=== PATIENT | male | born 1945 | race Caucasian/White ===

== ENCOUNTER → 2019-04-03 | Day surgery (SDC) | payer MEDICARE, SELFPAY | PROVIDERS: Family Provider Family Medicine; Visit Provider Family Medicine | DX: C64.1 Malignant neoplasm of right kidney, except renal pelvis (principal); S32.009A Unspecified fracture of unspecified lumbar vertebra, initial encounter for closed fracture; X58.XXXA Exposure to other specified factors, initial encounter; R91.8 Other nonspecific abnormal finding of lung field; Z82.49 Family history of ischemic heart disease and other diseases of the circulatory system | CPT/HCPCS: 50200; 77012; 88305; 88341; 88342; 96374; 96375; J2001; J2250; J3010 ==

== ENCOUNTER 2019-08-22 07:10 | Outpatient (RCR) | payer MEDICARE, SELFPAY | END 2019-08-22 23:59 | disposition home or self-care (01) | LOC: ONCRAD 07:10 | PROVIDERS: Family Provider Family Medicine; Visit Provider Nurse Practitioner | DX: Z51.12 Encounter for antineoplastic immunotherapy (principal); C64.1 Malignant neoplasm of right kidney, except renal pelvis; C79.51 Secondary malignant neoplasm of bone; C78.01 Secondary malignant neoplasm of right lung; C78.02 Secondary malignant neoplasm of left lung; D70.1 Agranulocytosis secondary to cancer chemotherapy; T45.1X5A Adverse effect of antineoplastic and immunosuppressive drugs, initial encounter; M19.90 Unspecified osteoarthritis, unspecified site; M48.9 Spondylopathy, unspecified; Z86.69 Personal history of other diseases of the nervous system and sense organs; Z85.820 Personal history of malignant melanoma of skin; Z92.3 Personal history of irradiation; Z79.899 Other long term (current) drug therapy | CPT/HCPCS: 36415; 80053 ×2; 83615; 84443 ×2; 85025 ×2; 96366; 96413; 99214; J1450; J7050 ×2; J9271 ==

== ENCOUNTER → 2019-08-29 00:01 | Outpatient (RCR) | payer MEDICARE, SELFPAY | LOC: ONCRAD 08-24 06:00 | PROVIDERS: Family Provider Family Medicine; Visit Provider Nurse Practitioner | DX: E86.9 Volume depletion, unspecified (principal); R11.0 Nausea; C64.1 Malignant neoplasm of right kidney, except renal pelvis; C79.51 Secondary malignant neoplasm of bone | CPT/HCPCS: 80053 ×2; 84443; 85025 ×2; 96361 ×2; 96365 ×2; 96367 ×2; J1100 ×2; J3490 ×2 ==

== ENCOUNTER 2019-09-04 05:28 | Outpatient (RCR) | payer MEDICARE, SELFPAY ==
[2019-08-31] MEDS: sodium chloride 0.9% 1,000 ML 999 ML IV (15:30)
[2019-09-01] MEDS: sodium chloride 0.9% 1,000 ML 999 ML IV (08:35)
[2019-09-04 12:14] LABS: Basophils % 1.2 %; Hematocrit 32.4 % (42.0-52.0); Hemoglobin 10.6 g/dL (11.7-16.6); Lymphocytes # 0.3 10^3/uL (0.8-4.8); Lymphocytes % 9.6 %; Mean Corpuscular HGB Conc 32.7 g/dL (30.0-36.0); Mean Corpuscular Hemoglobin 28.3 pg (28.0-34.0); Mean Corpuscular Volume 86.6 fL (80-94); Mean Platelet Volume 8.8 fL (7.4-10.4); Monocytes # 0.9 10^3/uL (0.2-0.9); Monocytes % 35.8 %; Neutrophils # 1.4 10^3/uL (1.8-7.7); Neutrophils % 52.2 %; Nucleated Red Blood Cells % 0 %; Platelet Count 212 10^3/cmm (130-400); Red Blood Count 3.74 10^6/uL (4.1-5.3); Red Cell Distribution Width 15.3 % (12.1-15.1); White Blood Count 2.6 10^3/uL (4.0-10.0)
[2019-09-04] MEDS: sodium chloride 0.9% 1,000 ML 999 ML IV (12:20)
[2019-09-04 12:35] LABS: Alanine Aminotransferase 22 U/L (0-41); Albumin Level 3.2 g/dL (3.5-5.2); Alkaline Phosphatase 91 IU/L (40-130); Anion Gap 23.8 (5-19); Aspartate Amino Transferase 20 U/L (0-40); Blood Urea Nitrogen 13 mg/dL (8-23); Calcium 8.3 mg/Dl (8.8-10.2); Carbon Dioxide 18 mmol/L (22-29); Chloride 91 mmol/L (98-107); Globulin 3.2 g/dL (1.3-4.6); Glucose 94 mg/dL (74-106); Lactate Dehydrogenase 286 U/L (135-225); Phenytoin Dilantin 3.2 ug/mL (10-20); Potassium 3.8 mmol/L (3.5-5.1); Sodium 129 mmol/L (136-145); Total Bilirubin 0.4 mg/dL (0.15-1.2); Total Protein 6.4 g/dL (6.6-8.7)
--- NOTE | 2019-09-04 12:57 | ONC FU_ITS ---
Dr. Valentine Patient Follow-Up Note Patient: Joshua Warren Unit #: [id number]: [id number] Dicatated By: Inderjit Valentine M.D.Date of Visit:Sep 04, 2019 Onc Med Follow-up/Prog Note Chief Complaint: Renal cell cancer. History of Present Illness: This is a 73 year-old man with clear-cell carcinoma the right kidney, stage IV (T2b, NX, M1). He had presented with back pain, which he says had started for 5 months ago. An x-ray of the thoracic spine on 12/14/2018 showed anterior wedging in the upper thoracic spine which appeared chronic. There was also chronic thoracic ankylosis with partial disc space fusion. X-ray of the lumbar spine on 02/15/2019 showed 30% anterior wedge compression fracture at L3 which was felt to be suspicious for pathologic fracture. Also noted were multiple pulmonary nodules suspicious for metastatic disease. Further evaluation with MRI of the lumbar spine on 02/28/2019 showed suspected pathologic compression fracture at L3 with epidural extension of disease and mild central canal stenosis. There was a paravertebral soft tissue component to the L3 pathologic compression with edema. There was a partially included lobulated mass involving the right kidney lower pole measuring 7-8 cm, suspicious for renal cell carcinoma. Additional metastatic lesions involving the T9 and T10 vertebral bodies were noted on the water pollution specialist imaging, there were additional bony metastatic lesions at the S3 vertebral body. Chest CT at that time showed innumerable metastatic pulmonary nodules throughout both lungs and masslike right hilar and infrahilar lymphadenopathy. A heterogeneous enhancing lesion involving the right adrenal gland measuring 1.8 cm was nonspecific but suspicious for metastatic disease. CT abdomen/pelvis on 03/17/2019 confirmed the presence of a large lobulated right renal mass with central necrosis measuring 10.3 x 8.9 x 8.6 cm, consistent with renal cell neoplasm. There was extension into the renal pelvis and there is perinephric soft tissue infiltration around the right kidney, possibly due to tumor extension. There was no evidence for tumor thrombus in the right renal vein or inferior vena cava. The right adrenal mass measured 2.0 cm and was suspicious for a metastatic lesion. He underwent CT directed needle biopsy of the right renal mass on 04/03/2019. Pathology showed malignant neoplasm most consistent with clear cell renal cell carcinoma. I had seen him initially on 04/12/2019. Due to the severity of his pain, I had initially opted to refer him for palliative radiation. He had further evaluation with MRI of the thoracic spine, which showed enhancing metastatic lesions at numerous other sites. He then underwent palliative radiation to the thoracic spine, completed on 04/26/2019 to a total dose of 3000 cGy, and to the lumbar spine, completed on 04/28/2019 to a total dose of 4000 cGy. During that time, he had developed fairly intractable nausea/vomiting. His medical history is otherwise significant for previous skin cancer excision from the left postauricular area. He indicates that it was melanoma, but I do not have confirmation of that. He had undergone excision of a basal cell skin cancer from the right antecubital in 2012. He has a history of seizure disorder, and he also has degenerative arthritis. He has had no other prior medical illnesses. He is a nonsmoker. INTERIM HISTORY: I had seen him for a follow-up visit on 05/02/2019. At that point his pain had improved significantly, but he was still having pretty severe nausea/vomiting. He had very poor oral intake and very poor performance status. He was given IV hydration and IV anti-emetics on multiple occasions. During that time he had further evaluation with brain MRI, which showed no evidence of metastatic disease. During subsequent follow-up, he had gradual improvement in his GI symptoms. On 05/16/2019 he began systemic therapy with pembrolizumab in combination with axitinib. He tolerated the initial infusion of pembrolizumab without acute toxicity, and he continued with cycle 2 on 06/06/2019. A repeat CT abdomen/pelvis on 06/07/2019 did show evidence of therapeutic response in the right renal neoplasm, and multiple pulmonary metastatic nodules, and in the right adrenal nodule compared to the prior study from 05/01/2019. Pathologic compression fracture at L3 appeared stable. There did appear to be progressive lytic metastatic disease involving the S2, S3, and S4 vertebral bodies, the left sacral ala, and probably the left ischium. With those findings, he was referred to Dr. Ho, and he underwent additional palliative radiation to the sacrum and left ischium/acetabulum. He completed treatment on 06/28/2019, total dose 3000 cGy to each site. He then continued treatment with pembrolizumab at 3-week intervals. As of 08/16/2019 he received his 5th cycle of treatment. He is seen for a follow-up visit. Since his last treatment, he had recurrence of nausea/vomiting, requiring IV hydration on several occasions. Initially it was just getting worse very gradually. However, on he developed more severe nausea/vomiting and diarrhea, and since then the vomiting has been intractable, and he has not been able to hold down any solid or liquid intake. He thinks he has felt feverish, but he has not actually documented any fever. He has had occasional night sweating. He is very weak, and his activity is very limited. ECOG score is 3. His weight has dropped 10 pounds. He says his breathing is not labored, but it also is not free. He has just occasional cough. He sometimes has had a little pressure in his chest. He has had no further bowel movements subsequent to the diarrhea episode on . He does report having gas pressure in his abdomen. Urination is slow, and he has having less urine output. He has no significant joint or bone pain. He has headache associated with the vomiting. He is sometimes lightheaded. He has no focal neurologic symptoms. Medications: Ibuprofen 2 Tablet (of 200 mg) Oral four times a day PRN, Levothyroxine Sodium 1 Tablet (of 100 mcg) Oral daily, LORazepam 0.5 - 1 Tablet (of 1 mg) Oral t.i.d. PRN, Ondansetron HCl 1 Tablet (of 8 mg) Oral q 8 hours PRN, Phenytoin Sodium Extended 2 Capsule (of 100 mg) Oral b.i.d., Potassium Chloride ER 1 Tablet (of 10 meq) Tablet, controlled release Oral daily PRN, Promethazine HCl 1 Tablet (of 25 mg) Oral q 8 hours PRN Allergies: No Known Allergies. Review of Systems: Constitutional - His energy is very low. He is mainly sedentary at home. His appetite is poor and his weight is down almost 10 pounds. He recently has felt feverish at times. He has occasional sweating at night. ECOG score is 3, ENMT - No sinus congestion/drainage. No mouth sores. No sore throat. He gags and gets choked on food, Hematologic/Lymphatic - No abnormal bruising or bleeding, Respiratory - He feels short of breath. No cough. No pleuritic pain or hemoptysis, Cardiovascular - He has chest pressure. No palpitations, Gastrointestinal - He has had nausea and vomiting for a week or so. It had been getting gradually worse, but since New Day he has not been able to hold down solid or liquid intake. No heartburn or acid reflux. He had diarrhea and abdominal cramping on New . He has not really had any bowel movements since then due to the decrease of oral intake. He has some bloating and cramping. No blood in the stool or black stools, Genitourinary (M) - No dysuria or hematuria. No urinary frequency. No urgency or incontinence. His urine is slow and his output is less, Musculoskeletal - No joint or bone pain, Integumentary - No skin complications, Neurologic - He has had headaches with the vomiting. He has some dizziness. No numbness/paresthesias or other focal neurologic symptoms, Psychiatric - No anxiety or depression. He is not sleeping well at night. Vital Signs: Performed on Sep 04, 2019 11:03 Height - 76.00 in Weight - 164.4 lbs (LOW) BSA - 2.04 sq.m BMI - 20.01 Temperature - 98.2 F (LOW) Pulse - 103 /min (HIGH) Respiration - 26 /min BP - 108/75 mm(hg) O2 Sat - 92 % (LOW) Pain - 2 Physical Examination: Constitutional - He appears very weak generally. He has noticeable weight loss, Eyes - Sclerae nonicteric. Conjunctivae clear, ENMT - No lesions noted in the oral cavity, Hematologic/Lymphatic - No cervical, clavicular, or axillary adenopathy, Respiratory - Lungs are clear with good air movement bilaterally, Cardiovascular - Heart rhythm is regular with a mild tachycardia. There is no murmur, gallop, or rub noted, Abdomen - Soft. Liver and spleen are not enlarged. There is no abdominal mass or ascites noted and there is no inguinal adenopathy, Extremities - There is mild lower extremity edema. Both feet feel cold, but he does have palpable dorsalis pedis pulses bilaterally, Neurologic - No focal neurologic deficits noted. Lab/Imaging: Test performed on Sep 04, 2019 12:37 Phenytoin (Dilantin) 3.2 mcg/mL Glucose 94 mg/dL LDH, Total 286 IU/L BUN 13 mg/dL Creatinine 1.3 mg/dL Cr Clearance (Est) 51.79 mL/min Sodium 129 mmol/L Potassium 3.8 mmol/L Chloride 91 mmol/L CO2 18 mmol/L Calcium 8.3 mg/dL Protein, Total 6.4 g/dL Albumin 3.2 g/dL Globulin 3.2 g/dL Bilirubin, Total 0.4 mg/dL Alkaline Phosphatase 91 IU/L AST (SGOT) 20 IU/L ALT (SGPT) 22 IU/L Test performed on Sep 04, 2019 12:32 WBC 2.6 10^9/L RBC 3.74 10^12/L HGB 10.6 g/dL HCT 32.4 % MCV 86.6 fl MCH 28.3 pg MCHC 32.7 g/dL RDW 15.3 % Platelet Count 212 10^9/L Neutrophils (Gran) 1.4 10^9/L Lymphocytes 0.3 10^9/L Monocytes 0.9 10^9/L Eosinophils 0 10^9/L Basophils 0 10^9/L Impression: 1. Patient with clear-cell carcinoma of the right kidney, stage IV (T2b, NX, M1). 2. He had MRI evidence of metastatic bone involvement with pathologic compression fracture of the L3 vertebral body and metastatic involvement at multiple sites in the thoracic spine. 3. He had poor performance status. His other medical illnesses include: 4. Degenerative arthritis/degenerative disease of the spine. 5. History of seizure disorder. 6. History of melanoma excision from the left postauricular area and excision of basal cell carcinoma from the right antecubital space. He had severe pain associated with the metastatic bone involvement, and initially he was referred for palliative radiation. He completed treatment to the thoracic spine on 04/26/2019, total dose 3000 cGy, and to the lumbar spine on 04/28/2019, total dose 4000 cGy. During the radiation he developed fairly intractable nausea/vomiting, and he continued to have very marginal performance status. He did appear, though, to have a very good clinical response the radiation. During subsequent follow-up he had gradual improvement in his GI symptoms. On 05/16/2019 he began treatment with pembrolizumab in combination with axitinib. Initally he had been tolerating the treatment well, though he continued to have limited activity. His performance status, though, was gradually improving. Repeat CT abdomen/pelvis on 06/07/2019 showed evidence of therapeutic response of the right renal neoplasm, multiple pulmonary metastatic nodules, and right adrenal nodule. There was, however, progressive lytic metastatic disease involving the sacrum and pelvis. He was then given additional palliative radiation to the pelvis, completed on 06/28/2019 to a total dose of 3000 cGy. He proceeded with cycle 3 of pembrolizumab on 07/05/2019, and he then continued treatment at 3-week intervals. He received cycle 5 on 08/16/2019. At that point the axitinib was put on hold due to persistent neutropenia. He has since then developed recurrence of nausea/vomiting. It had been getting worse gradually, but on New Year's Frida he developed more severe nausea/vomiting and diarrhea, and since then the vomiting has been intractable. A specific cause has not been determined. Plan: His treatment will be put on hold. Due to the severity of his nausea/vomiting, I am initiating IV hydration and IV antiemetics in the office, and I am arranging for direct admission to the hospital. Signed By: Inderjit Valentine M.D. <<Signature on File>>
== END 2019-09-04 14:00 | disposition home or self-care (01) ==
LOC: ONCMED 05:28
PROVIDERS: Family Provider Family Medicine; PCP Family Medicine; Visit Provider Internal Medicine Medical Oncology
DX: C79.51 Secondary malignant neoplasm of bone (principal); C64.1 Malignant neoplasm of right kidney, except renal pelvis; E86.0 Dehydration; C78.01 Secondary malignant neoplasm of right lung; C78.02 Secondary malignant neoplasm of left lung; Z92.3 Personal history of irradiation; G40.909 Epilepsy, unspecified, not intractable, without status epilepticus; R11.2 Nausea with vomiting, unspecified; M84.58XD Pathological fracture in neoplastic disease, other specified site, subsequent encounter for fracture with routine healing; D70.1 Agranulocytosis secondary to cancer chemotherapy; T45.1X5A Adverse effect of antineoplastic and immunosuppressive drugs, initial encounter; Z79.899 Other long term (current) drug therapy; Z85.820 Personal history of malignant melanoma of skin
CPT/HCPCS: 36415; 80053; 80185; 83615; 85025; 96360; 96361; 96365; 96367; 99214; J1100; J2405; J7030

== ENCOUNTER 2019-09-04 14:03 | Inpatient (IN) | payer MEDICARE, SELFPAY ==
[2019-09-04 13:46] VITALS: BP 121/80; PULSE 103; RESP 20; TEMP 36.5; O2SAT 93
--- NOTE | 2019-09-04 14:51 | CTR_ITS ---
PROCEDURE INFORMATION: Exam: CT Abdomen And Pelvis With Contrast Exam date and time: 09/04/2019 9:07 PM Age: 74 years old Clinical indication: Nausea and vomiting; Abdominal pain; Additional info: Nausea vomiting, abdominal pain, metastatic cancer TECHNIQUE: Imaging protocol: Computed tomography of the abdomen and pelvis with intravenous contrast. Total DLP: 737.23 mGy-cm Radiation optimization: All CT scans at this facility use at least one of these dose optimization techniques: automated exposure control; mA and/or kV adjustment per patient size (includes targeted exams where dose is matched to clinical indication); or iterative reconstruction. Contrast material: VISI 320; Contrast volume: 95 ml; Contrast route: IV; COMPARISON: CT abdomen pelvis w con* [id number] 06/07/2019 10:20 AM FINDINGS: Lungs: Numerous pulmonary nodules compatible with metastatic disease are identified. These have increased in size and number. One the largest nodules is in the left lower lobe and measures 2.7 by 1.9 cm in size today image 8 where previously it measured 2.5 by 1.5 cm in size. Liver: Small hepatic hypodensities too small to characterize are unchanged. There is mild fatty infiltration liver. Gallbladder and bile ducts: There is gallbladder hydrops. No stones or duct dilatation. Pancreas: Normal. No ductal dilation. Spleen: Normal. No splenomegaly. Adrenals: The right adrenal nodule is unchanged. The left adrenal gland is unremarkable. Kidneys and ureters: The necrotic appearing right renal mass today measures 4.6 x 7.0 x 7.1 cm today compared to the prior exam where it measured 4.7 x 7.3 x 7.3 cm. Stomach and bowel: There is diffuse small bowel wall thickening, consistent with infectious, ischemic, or inflammatory enteritis. There is wall thickening with haziness of the adjacent fat involving the descending and sigmoid colon concerning for colitis. The stomach is very distended with fluid. The duodenum is also distended. There is prominent wall thickening in the distal duodenum and jejunum compatible with enteritis with mild obstruction of the distal duodenum and stomach. Appendix: A normal appendix is identified. Tiny appendicolith is noted. Intraperitoneal space: Unremarkable. No free air. No significant fluid collection. Vasculature: Unremarkable.No abdominal aortic aneurysm. Lymph nodes: Unremarkable.No enlarged lymph nodes. Bladder: Unremarkable as visualized. Reproductive: Unremarkable as visualized. Bones/joints: Bony metastatic disease is again identified with marked fracture deformity of L3. Patchy bony sclerosis the T10 and T11 with underlying probable lytic changes is identified compatible probable treated metastasis. Moth-eaten appearance of the sacrum and right iliac crest is also identified compatible with unchanged metastasis with some increased bony sclerosis that suggests bony remodeling/treated metastasis. Additional lytic changes in the iliac wings and pelvis are overall unchanged in size. There is no new pathologic fracture. Soft tissues: There is small fat filled inguinal hernias. Mild anasarca type changes are noted. CT/CT abdomen pelvis w con* [id number] IMPRESSION: 1. Increasing pulmonary metastases. 2. There is diffuse small bowel wall thickening, consistent with infectious, ischemic, or inflammatory enteritis. 3. There is wall thickening with haziness of the adjacent fat involving the descending and sigmoid colon concerning for colitis. 4. The stomach is very distended with fluid. The duodenum is also distended. There is prominent wall thickening in the distal duodenum and jejunum compatible with enteritis with mild obstruction of the distal duodenum and stomach. 5. Diffuse metastatic disease as above. No significant progression or new pathologic fracture compared to the prior study. Radiation Dose CTDIVOL = (mGy): DLP = 737.23 (mGy-cm)
--- NOTE | 2019-09-04 14:52 | P.HP_ITS ---
Providers/Chief Complaint Admitting Physician: Kristie Chambers MD Primary Care Provider: Ze Ovalle Chief Complaint: RENAL CELL CANCER/INTRACTABLE VOMITING/ BONE METS History of Present Illness Joshua Warren is a 74 year old male that presented to the hospital today via direct admission from oncology office due to intractable nausea vomiting and dehydration. Patient reported increased nausea and vomiting since . He stated that he has a very strong gag reflex and he has been having trouble keeping any down any food or liquids. He reports going into the onc ology office today and being sent here for further evaluation due to this concern. He stated that he had a hard bowel movement on August 30 after taking a laxative. He stated that he has been having some vague discomfort in the lower part of his abdomen and increasing nausea and vomiting since that time. He stated that he took another laxative on Wednesday and had another firm bowel movement on Wednesday morning. He reports that he is uncertain if he has passed any flatus over the past couple of days. He reports increased saliva and the saliva thickens and causes him to vomit due to his gag reflex. Patient reports recently being diagnosed with thrush and was on Diflucan for 2 weeks and this was started on 08/16/2019. Patient stated that he feels generally weak and fatigued to due to the decreased oral intake. He stated that he has thought about having a feeding tube placed. Review of Systems Const: Reports: change in appetite, change in weight, fatigue and malaise; Denies: fever or chills Eyes: Denies: change in vision ENMT: Denies: nasal congestion Card: Denies: chest pain, palpitations or edema Resp: Denies: shortness of breath, productive cough or coughing up blood GI: Reports: abdominal pain, nausea, vomiting and constipation; Denies: difficulty swallowing, diarrhea, blood in stool or black tarry stool : Denies: painful urination or blood in urine Musc: Denies: extremity pain or muscle cramps Skin/Breast: Denies: rash or new lesion Neuro: Denies: headache or dizziness Psych: Reports: depression; Denies: anxiety Endo: Denies: excessive urination or hot flashes Jarad/Lymph: Denies: easy bruising or easy bleeding Medications/Allergies Home Medications Medication Instructions Recorded Confirmed Last Taken Type levothyroxine 125 mcg PO DAILY 09/04/19 09/04/19 Unknown History phenytoin sodium extended 200 mg PO BID 09/04/19 09/04/19 1 Day Ago History ~09/03/19 potassium chloride 10 meq PO DAILY 09/04/19 09/04/19 1 Day Ago History ~09/03/19 Allergies Allergy/AdvReac Type Severity Reaction Status Date / Time No Known Allergies Allergy Verified 09/04/19 15:06 PFSH Acute PFSH: Statuses (acute, chronic, etc) shown below reflect problem list status as previously entered and may not be historically accurate Medical History (Updated 09/04/19 @ 15:15 by Kristie Chambers DO) Clear cell carcinoma of kidney (Acute) Clear-cell carcinoma of the right kidney, stage IV (T2b, NX, M1) Followed by Dr. Valentine H/O needle biopsy (Acute) History of radiation therapy (Acute) Hypothyroidism (Acute) Seizure disorder (Acute) Surgical History (Updated 09/04/19 @ 15:08 by Kristie Chambers DO) H/O basal cell carcinoma excision (Acute) History of melanoma excision (Acute) S/P cataract surgery (Acute) Family History (Updated 09/04/19 @ 15:10 by Kristie Chambers DO) Mother , at age 94 Stroke Father , at 82, COPD No problems noted. Social History (Updated 09/04/19 @ 15:10 by Kristie Chambers DO) Smoking and tobacco status: never smoked Alcohol intake: never Substance/Drug Use: never Lives independently: Yes Household members: none Physical Exam Const: COMMON NORMALS: oriented x3 and alert GENERAL APPEARANCE: cooperative, ill appearing and frail appearing NUTRITIONAL APPEARANCE: cachectic and thin ORIENTATION/CONSCIOUSNESS: Yes awake, Yes oriented to person, Yes oriented to place and Yes oriented to time HENMT: COMMON NORMALS: normocephalic and head/scalp atraumatic HEAD & SCALP: normocephalic and atraumatic Eye: COMMON NORMALS: PERRL PUPIL: Yes PERRL Neck/C-Spine: COMMON NORMALS: supple GENERAL: Yes normal visual inspection Resp: COMMON NORMALS: normal respiratory effort and clear to auscultation bilaterally EFFORT & INSPECTION: Yes able to speak in complete sentences AUSCULTATION: clear to auscultation bilaterally, no rhonchi and no wheezes Cardio: COMMON NORMALS: regular rate, regular rhythm and no murmurs RATE: regular rate RHYTHM: regular rhythm GI: COMMON NORMALS: soft to palpation and non-tender INSPECTION: No abdominal distension AUSCULTATION: Yes normoactive bowel sounds PALPATION: Yes soft and Yes tender Details: LLQ and RLQ : COMMON NORMALS: Yes no CVA tenderness BLADDER/KIDNEY EXAM: Yes no CVA tenderness Back/Pelvis: COMMON NORMALS: no CVA tenderness Extremity: COMMON NORMALS: no clubbing, cyanosis or edema and no calf tenderness Neuro: COMMON NORMALS: oriented x3, CN's II-XII intact bilaterally, moves all extremities and no focal motor deficits SENSORIUM/ORIENTATION: Yes alert, Yes oriented to person, Yes oriented to place and Yes oriented to time SPEECH: speech normal Psych: COMMON NORMALS: mental status grossly normal and cooperative Skin: COMMON NORMALS: no rashes or lesions noted GENERAL SKIN EXAM: no rashes or lesions noted A&P Assessment and plan (1) Intractable nausea and vomiting: Admit to [facility]. IV fluids, D5 NS CT scan of the abdomen pelvis due to clear cell carcinoma the right kidney, stage IV with concern for obstruction with intractable nausea vomiting and abdominal pain N.p.o. status Zofran PRN nausea Status: Acute Code(s): R11.2 - Nausea with vomiting, unspecified (2) Clear cell carcinoma of kidney: Followed by Dr. Valentine, recently taken off of chemotherapy, continues on immunotherapy. On Pembrolizumab 200mg IV Status: Acute Code(s): C64.9 - Malignant neoplasm of unspecified kidney, except renal pelvis (3) Seizure disorder: Continue on home Dilantin. Placed on seizure precautions Status: Acute Code(s): G40.909 - Epilepsy, unspecified, not intractable, without status epilepticus (4) Hypothyroidism: Will check TSH, patient has been unable to keep down his levothyroxine Continue home levothyroxine at this time he was recently increased to 125 mcg daily by oncology office Status: Acute Code(s): E03.9 - Hypothyroidism, unspecified Attestations Medical Necessity Statement*: Patient requires hospitalization due to intractable nausea vomiting and abdominal pain in the setting of metastatic clear cell carcinoma. Expected stay greater than 2 midnights Coding Level of Care Code Acute District Loss Prevention Manager for Chg Fwd Diagnoses Intractable nausea and vomiting R11.2 Clear cell carcinoma of kidney C64.9 Seizure disorder G40.909 Hypothyroidism E03.9
[2019-09-04 14:54] VITALS: BMI 19.3
[2019-09-04 15:14] VITALS: BP 107/69; PULSE 85; RESP 20; TEMP 36.8; O2SAT 94
[2019-09-04] MEDS: dextrose 5%-sod chloride 0.9% 1,000 ML 75 ML IV (15:34)
[2019-09-04] MEDS: enoxaparin 40 mg/0.4 mL Syringe SUBCUT (15:36)
[2019-09-04 16:25] LABS: Thyroid Stimulating Hormone 7.26 uIU/mL (0.27-4.20)
[2019-09-04 16:37] VITALS: PULSE 92; O2SAT 94
[2019-09-04] MEDS: phenytoin ER 100 mg Capsule 200 MG PO (18:30)
[2019-09-04 19:09] VITALS: BP 118/78; PULSE 94; RESP 18; TEMP 37; O2SAT 94
[2019-09-04] MEDS: iodixanol 320 mg/mL 100mL Btl 95 ML IV (21:32)
[2019-09-04 22:48] LABS: Alanine Aminotransferase 20 U/L (0-41); Alkaline Phosphatase 81 IU/L (40-130); Anion Gap 21.1 (5-19); Aspartate Amino Transferase 23 U/L (0-40); Blood Urea Nitrogen 14 mg/dL (8-23); Calcium 7.8 mg/Dl (8.8-10.2); Carbon Dioxide 19 mmol/L (22-29); Chloride 95 mmol/L (98-107); Free T4 Free Thyroxine 1.54 ng/dL (0.82-1.77); Globulin 2.8 g/dL (1.3-4.6); Glucose 120 mg/dL (74-106); Potassium 4.1 mmol/L (3.5-5.1); Sodium 131 mmol/L (136-145); Total Bilirubin 0.3 mg/dL (0.15-1.2); Total Protein 5.8 g/dL (6.6-8.7)
[2019-09-04] MEDS: ondansetron 2 mg/ML SDV 2 mL 4 MG IVP (23:45)
[2019-09-04 23:46] VITALS: BP 133/87; PULSE 108; RESP 20; TEMP 36.8; O2SAT 92
[2019-09-05] MEDS: diphenhydrAMINE 25 mg Capsule PO (01:51)
[2019-09-05 02:24] VITALS: BP 135/86; PULSE 96; RESP 18; O2SAT 92
[2019-09-05] MEDS: acetaminophen 325 mg Tablet 650 MG PO (02:39)
--- NOTE | 2019-09-05 03:21 | ECG_ITS ---
Measurements Intervals [place] Rate: 99 P: HI: 0 QRS: 62 QRSD: 98 T: 77 QT: 355 QTc: 456 SINUS RYTHM MODERATE T-WAVE ABNORMALITY, CONSIDER LATERAL ISCHEMIA [-0.1+ mV T WAVE IN I/aVL/V5/V6] No previous ECG available for comparison Electronically Signed On 09-05-2019 19:21:15 ZMT OPERATOR by Bill Abad M.D. [email or web address]
[2019-09-05] MEDS: ondansetron 2 mg/ML SDV 2 mL 4 MG IVP ×2 (03:39→04:00)
[2019-09-05] MEDS: dextrose 5%-sod chloride 0.9% 1,000 ML 75 ML IV ×2 (03:43→20:50)
[2019-09-05 04:00] VITALS: BP 131/83; PULSE 88; RESP 20; TEMP 36.9; O2SAT 94
[2019-09-05 05:56] LABS: Basophils % 0.8 %; Hematocrit 29.6 % (42.0-52.0); Hemoglobin 9.5 g/dL (11.7-16.6); Lymphocytes # 0.2 10^3/uL (0.8-4.8); Mean Corpuscular HGB Conc 32.1 g/dL (30.0-36.0); Mean Corpuscular Hemoglobin 28.4 pg (28.0-34.0); Mean Corpuscular Volume 88.4 fL (80-94); Mean Platelet Volume 8.6 fL (7.4-10.4); Monocytes # 0.8 10^3/uL (0.2-0.9); Monocytes % 31.7 %; Neutrophils # 1.5 10^3/uL (1.8-7.7); Neutrophils % 60.7 %; Nucleated Red Blood Cells % 0 %; Platelet Count 220 10^3/cmm (130-400); Red Blood Count 3.35 10^6/uL (4.1-5.3); Red Cell Distribution Width 15.1 % (12.1-15.1); White Blood Count 2.5 10^3/uL (4.0-10.0)
[2019-09-05 06:10] LABS: Alanine Aminotransferase 22 U/L (0-41); Albumin Level 2.8 g/dL (3.5-5.2); Alkaline Phosphatase 75 IU/L (40-130); Anion Gap 20.7 (5-19); Aspartate Amino Transferase 24 U/L (0-40); Blood Urea Nitrogen 14 mg/dL (8-23); Calcium 7.6 mg/Dl (8.8-10.2); Carbon Dioxide 17 mmol/L (22-29); Chloride 97 mmol/L (98-107); Globulin 2.7 g/dL (1.3-4.6); Glucose 140 mg/dL (74-106); Potassium 3.7 mmol/L (3.5-5.1); Sodium 131 mmol/L (136-145); Total Bilirubin 0.4 mg/dL (0.15-1.2); Total Protein 5.5 g/dL (6.6-8.7)
[2019-09-05 07:22] VITALS: BP 132/87; PULSE 90; RESP 20; TEMP 37.1; O2SAT 92
[2019-09-05] MEDS: metroNIDAZOLE IV 500 MG/100 ML PREMIX 100 MG IV ×3 (08:03→23:38)
[2019-09-05] MEDS: ciprofloxacin 400 MG/200 ML PREMIX 200 MG IV ×2 (08:59→20:50)
[2019-09-05] MEDS: phenytoin ER 100 mg Capsule 200 MG PO ×2 (09:37→18:23)
[2019-09-05] MEDS: levothyroxine 125 mcg Tablet PO (09:37)
[2019-09-05 09:54] LABS: Lactic Acid 1.3 mmol/L (0.5-2.2)
[2019-09-05 11:02] VITALS: BP 119/73; PULSE 90; RESP 20; TEMP 36.6; O2SAT 92
--- NOTE | 2019-09-05 12:01 | PM.PN ---
Subjective Subjective: Interval history: Patient awake in bed at time of exam this morning. Family members at bedside. Patient reported 4 episodes of vomiting since midnight. He reported that his abdomen is feeling somewhat better but continues to have strong gag reflex with any type of secretions. He reports that it feels like something is coming up in his esophagus to the back of his throat. Patient reports passing flatus. But concerned about not being able to keep down liquids or food. Discussed with patient CT scan findings including progression of pulmonary metastasis. Patient reporting that he would like to consider PEG tube placement. Vitals/I&O/Wt Last Vital Signs Temp 97.9 F 09/05/19 11:02 Pulse 90 09/05/19 11:02 Resp 20 H 09/05/19 11:02 BP 119/73 09/05/19 11:02 Pulse Ox 92 09/05/19 11:02 09/04/19 09/05/19 09/05/19 22:59 06:59 14:59 Intake Total 50 / 50 961.25 / 1011.25 Output Total 1200 / 1200 Balance 50 / 50 -238.75 / -188.75 Weight last 48 hrs Weight 77.309 kg Weight 71.923 kg Physical Exam Const: COMMON NORMALS: oriented x3 and alert GENERAL APPEARANCE: cooperative, ill appearing and frail appearing NUTRITIONAL APPEARANCE: cachectic and thin ORIENTATION/CONSCIOUSNESS: Yes awake, Yes oriented to person, Yes oriented to place and Yes oriented to time HENMT: COMMON NORMALS: normocephalic and head/scalp atraumatic HEAD & SCALP: normocephalic and atraumatic Eye: COMMON NORMALS: PERRL PUPIL: Yes PERRL Neck/C-Spine: COMMON NORMALS: supple GENERAL: Yes normal visual inspection Resp: COMMON NORMALS: normal respiratory effort and clear to auscultation bilaterally EFFORT & INSPECTION: Yes able to speak in complete sentences AUSCULTATION: clear to auscultation bilaterally, no rhonchi and no wheezes Cardio: COMMON NORMALS: regular rate, regular rhythm and no murmurs RATE: regular rate RHYTHM: regular rhythm GI: COMMON NORMALS: soft to palpation INSPECTION: No abdominal distension AUSCULTATION: Yes hypoactive bowel sounds PALPATION: Yes soft and Yes tender (Epigastric region) Extremity: COMMON NORMALS: no clubbing, cyanosis or edema and no calf tenderness Neuro: COMMON NORMALS: oriented x3, CN's II-XII intact bilaterally, moves all extremities and no focal motor deficits SENSORIUM/ORIENTATION: Yes alert, Yes oriented to person, Yes oriented to place and Yes oriented to time SPEECH: speech normal Psych: COMMON NORMALS: mental status grossly normal and cooperative OTHER: Tearful Skin: COMMON NORMALS: no rashes or lesions noted GENERAL SKIN EXAM: no rashes or lesions noted Data Imaging^: CT Abd/Pel: Radiologist's impression: IMPRESSION: 1. Increasing pulmonary metastases. 2. There is diffuse small bowel wall thickening, consistent with infectious, ischemic, or inflammatory enteritis. 3. There is wall thickening with haziness of the adjacent fat involving the descending and sigmoid colon concerning for colitis. 4. The stomach is very distended with fluid. The duodenum is also distended. There is prominent wall thickening in the distal duodenum and jejunum compatible with enteritis with mild obstruction of the distal duodenum and stomach. 5. Diffuse metastatic disease as above. No significant progression or new pathologic fracture compared to the prior study. A&P Assessment and plan (1) Intractable nausea and vomiting: Intractable nausea and vomiting for the past several days, patient reports also worsening over the past several weeks. CT scan of the abdomen and pelvis as noted above. Discussed with general surgeon, Dr. Jaime for consultation. 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 On Pembrolizumab 200mg IV CT scan shows progression of pulmonary metastasis, discussed with patient and family members at bedside Status: Acute Code(s): C64.9 - Malignant neoplasm of unspecified kidney, except renal pelvis (3) Seizure disorder: Continue on home Dilantin. Placed on seizure precautions Status: Acute Code(s): G40.909 - Epilepsy, unspecified, not intractable, without status epilepticus (4) Hypothyroidism: Patient has been unable to keep down medication in the outpatient setting. TSH slightly elevated with normal T4. Continue on home levothyroxine of 125 mcg daily Status: Acute Code(s): E03.9 - Hypothyroidism, unspecified Additional A&P Information Additional A&P Information: Will start on IV Cipro and Flagyl today. NG tube placement due to findings on CT scan of the abdomen pelvis with distention of the stomach and duodenum and patient continuing to have nausea and vomiting. Discussed with general surgeon, Dr. Jaime for consultation, appreciate recommendations and assistance in patient's care. We will continue on current levothyroxine dosing. Start on IV PPI. Continue with IV fluids Attestations Medical Necessity Statement*: Patient requires continued hospitalization due to concern for diffuse colitis with clear cell carcinoma with metastasis Coding Level of Care Code Acute Lubrication Equipment Servicer for [facility] Fwd Diagnoses Intractable nausea and vomiting R11.2 Clear cell carcinoma of kidney C64.9 Seizure disorder G40.909 Hypothyroidism E03.9
[2019-09-05] MEDS: pantoprazole 40 mg SDV IVP (12:43)
--- NOTE | 2019-09-05 14:20 | XR_ITS ---
WS: [id number] Portable AP upright chest, 09/05/2019 Clinical Data: confirm NG tube placement Comparison: Portable chest, 08/22/2019 Findings: The nasogastric tube ends at approximately the T11 vertebral body and needs to be advanced to enter the stomach. The pulmonary vascularity is not increased. No pneumonia or pneumothorax is see n. The aortic arch and descending aorta show tortuosity. The heart is normal. There is contrast mater ial in both kidneys, prior CT scan. XR/XR chest 1V portable [id number] Impression: Nasogastric tube ends at T11 vertebral body.
[2019-09-05] MEDS: enoxaparin 40 mg/0.4 mL Syringe SUBCUT (15:01)
[2019-09-05 15:24] VITALS: BP 128/81; PULSE 94; RESP 22; TEMP 36.4; O2SAT 93
--- NOTE | 2019-09-05 16:55 | XR_ITS ---
WS: [id number] ABDOMEN KUB CLINICAL INFORMATION: Abdominal pain COMPARISON: None. FINDINGS: Residual contrast in the renal collecting systems and bladder. Normal visualized bowel gas pattern. P ersistent air within the colon. Hypertrophic changes lumbar spine. XR/XR KUB portable [id number] Impression: Unremarkable visualized bowel gas pattern.
--- NOTE | 2019-09-05 17:15 | P.CONIM_ITS ---
Providers/Reason For Consult Consulting Physican/Specialty*: General Surgery Kyle Jaime MD Reason for Consult*: Nausea and vomiting, distended stomach and duodenum by CT. Attending Physician: Kristie Chambers MD Primary Care Provider: Ze Ovalle History of Present Illness History of Present Illness Joshua Warren is a 74 year old male who was admitted to the hospital yesterday after being seen in oncology for ongoing treatment for metastatic clear-cell renal carcinoma. He apparently has been having some problems with intermittent nausea and vomiting for several weeks. He says it is not so much nausea as it is a gagging sensation even when I try to take a single bite of food. He says he had a large loose bowel movement on New 's Day and then had a solid bowel movement 3 days ago, but ever since has not had any bowel movements. He says he cannot even remember passing any flatus during that period of time. He said he did have some left lower quadrant discomfort that seemed to be fairly persistent. He ended up getting a nasogastric tube placed today after a CAT scan showed gastric dilatation. He says his abdomen feels quite a bit less distended. Review of Systems Const: Denies: fever Eyes: Denies: change in vision ENMT: Reports: other (Gagging sensation with attempts to swallow) Card: Denies: chest pain Resp: Denies: shortness of breath GI: Reports: abdominal pain (Left lower quadrant, mild) : Reports: other (Right clear cell renal carcinoma) Musc: Reports: other (40 pound weight loss since being diagnosed with renal cell carcinoma) Skin/Breast: Reports: other (History of skin cancer on the nose, right cheek, right arm, left side of scalp) Neuro: Denies: headache Jarad/Lymph: Denies: easy bleeding Meds/Allergies Home Medications and Allergies Home Medications Medication Instructions Recorded Confirmed Type levothyroxine 125 mcg PO DAILY 09/04/19 09/04/19 History phenytoin sodium extended 200 mg PO BID 09/04/19 09/04/19 History potassium chloride 10 meq PO DAILY 09/04/19 09/04/19 History Allergies Allergy/AdvReac Type Severity Reaction Status Date / Time No Known Allergies Allergy Verified 09/04/19 15:06 Current Medications Current Medications Generic Name Dose Route Start Last Admin Trade Name Freq PRN Reason Stop Dose Admin Acetaminophen 650 mg 09/04/19 14:47 09/05/19 02:39 Tylenol PO 650 mg Q6H PRN Administration Mild/Mod Pain Or Temp >/= 101 Enoxaparin Sodium 40 mg 09/04/19 15:00 09/05/19 15:01 Lovenox SUBCUT 40 mg Q24H RACHELE Administration Dextrose/Sodium Chloride 1,000 mls @ 75 mls/hr 09/04/19 15:00 09/05/19 03:43 Dextrose 5%-Sod Chloride 0.9% IV 75 mls/hr .[id number] RACHELE Administration Metronidazole 500 mg in 100 mls @ 100 mls/hr 09/05/19 07:45 09/05/19 15:01 Flagyl Iv IV 100 mls/hr Q8H RACHELE Administration Protocol Ciprofloxacin/Dextrose 400 mg in 200 mls @ 200 mls/hr 09/05/19 08:00 09/05/19 08:59 Cipro IV 200 mls/hr Q12H RACHELE Administration Protocol Levothyroxine Sodium 125 mcg 09/05/19 09:00 09/05/19 09:37 Synthroid PO 125 mcg DAILY RACHELE Administration Ondansetron HCl 4 mg 09/04/19 14:47 09/05/19 03:39 Zofran IVP 4 mg Q8H PRN Administration vomiting, or N/V if npo Pantoprazole Sodium 40 mg 09/05/19 11:50 09/05/19 12:43 Protonix IVP 40 mg DAILY RACHELE Administration Phenytoin 200 mg 09/04/19 18:30 09/05/19 09:37 Dilantin PO 200 mg BID RACHELE Administration Potassium Chloride 10 meq 09/05/19 09:00 09/05/19 09:40 Klor-Con 10 PO Not Given DAILY RACHELE PFSH Acute PFSH: Statuses (acute, chronic, etc) shown below reflect problem list status as previously entered and may not be historically accurate Medical History (Updated 09/05/19 @ 17:30 by Kyle Jaime MD) Arthritis (Chronic) Clear cell carcinoma of kidney (Acute) Clear-cell carcinoma of the right kidney, stage IV (T2b, NX, M1) Followed by Dr. Valentine History of radiation therapy (Acute) Hypothyroidism (Acute) Seizure disorder (Acute) Surgical History (Updated 09/05/19 @ 17:28 by Kyle Jaime MD) H/O basal cell carcinoma excision (Acute) Right antecubital fossa H/O needle biopsy (Inactive) Right kidney History of melanoma excision (Acute) Left postauricular area, nose S/P cataract surgery (Acute) Right Family History (Updated 09/04/19 @ 15:10 by Kristie Chambers DO) Mother , at age 94 Stroke Father , at 82, COPD No problems noted. Social History (Updated 09/04/19 @ 15:10 by Kristie Chambers DO) Smoking and tobacco status: never smoked Alcohol intake: never Lives independently: Yes Household members: none Vitals/I&O/Wt Last Vital Signs Temp 97.6 F 09/05/19 15:24 Pulse 94 09/05/19 15:24 Resp 22 H 09/05/19 15:24 BP 128/81 09/05/19 15:24 Pulse Ox 93 09/05/19 15:24 09/05/19 09/05/19 09/05/19 06:59 14:59 22:59 Intake Total 961.25 / 1011.25 100 / 100 Output Total 1200 / 1200 Balance -238.75 / -188.75 100 / 100 Weight last 48 hrs Weight 170 lb 7 oz Weight 158 lb 9 oz Physical Exam Narrative: EXAM NARRATIVE: The patient was encountered in his hospital room. He has a nasogastric tube in the left naris which is draining light bilious colored fluid. The patient does not appear to be in any acute distress. The pupils seem equal. No carotid bruits are heard. The lungs are clear anteriorly. The heart is regular. The abdomen is soft and nontender. I cannot feel any obvious masses. The extremities reveal no edema. Neurologically the patient appears to be grossly intact. Data Other Data: Other data: CT abdomen/pelvis iMPRESSION: 1. Increasing pulmonary metastases. 2. There is diffuse small bowel wall thickening, consistent with infectious, ischemic, or inflammatory enteritis. 3. There is wall thickening with haziness of the adjacent fat involving the descending and sigmoid colon concerning for colitis. 4. The stomach is very distended with fluid. The duodenum is also distended. There is prominent wall thickening in the distal duodenum and jejunum compatible with enteritis with mild obstruction of the distal duodenum and stomach. 5. Diffuse metastatic disease as above. No significant progression or new pathologic fracture compared to the prior study. A&P Assessment and plan (1) Intractable nausea and vomiting: CT was reviewed. The patient clearly has a dilated stomach and proximal duodenum, but I do not see evidence of a clear obstruction in the distal duodenum or proximal small bowel. He does appear to have some enteritis changes which may be secondary to his neutropenia, perhaps a viral syndrome, etc. he clearly is not fully obstructed as he has air in his colon. I am hopeful that with temporary nasogastric decompression he will continue to improve and this condition will resolve. His overall prognosis given his metastatic renal cell carcinoma is poor, however. Status: Acute Code(s): R11.2 - Nausea with vomiting, unspecified Consult Attestations Medical Necessity Statement: See admitting service's notation. Coding Level of Care Code Acute Software Computer Specialist for [facility] Fwd Diagnoses Intractable nausea and vomiting R11.2
[2019-09-05 19:46] VITALS: BP 120/76; PULSE 96; RESP 19; TEMP 37.1; O2SAT 93
[2019-09-05 21:34] LABS: Glucose Point of Care 140 mg/dL (70-110)
[2019-09-06] VITALS (8 sets, daily range): BP systolic 108–133; BP diastolic 73–87; PULSE 88–95; RESP 15–22; TEMP 36.6–37.2; O2SAT 92–95
[2019-09-06 05:31] LABS: Basophils % 1.2 %; Hematocrit 26.1 % (42.0-52.0); Hemoglobin 8.7 g/dL (11.7-16.6); Lymphocytes # 0.1 10^3/uL (0.8-4.8); Lymphocytes % 8.3 %; Mean Corpuscular HGB Conc 33.3 g/dL (30.0-36.0); Mean Corpuscular Hemoglobin 28.3 pg (28.0-34.0); Mean Platelet Volume 8.7 fL (7.4-10.4); Monocytes # 0.5 10^3/uL (0.2-0.9); Monocytes % 28.6 %; Neutrophils % 60.7 %; Nucleated Red Blood Cells % 0 %; Platelet Count 198 10^3/cmm (130-400); Red Blood Count 3.07 10^6/uL (4.1-5.3); Red Cell Distribution Width 15.2 % (12.1-15.1); White Blood Count 1.7 10^3/uL (4.0-10.0)
[2019-09-06 05:50] LABS: Alanine Aminotransferase 21 U/L (0-41); Albumin Level 2.8 g/dL (3.5-5.2); Alkaline Phosphatase 71 IU/L (40-130); Anion Gap 14.3 (5-19); Aspartate Amino Transferase 23 U/L (0-40); Blood Urea Nitrogen 12 mg/dL (8-23); Calcium 7.3 mg/Dl (8.8-10.2); Carbon Dioxide 22 mmol/L (22-29); Chloride 102 mmol/L (98-107); Globulin 2.2 g/dL (1.3-4.6); Glucose 131 mg/dL (74-106); Potassium 3.3 mmol/L (3.5-5.1); Sodium 135 mmol/L (136-145); Total Bilirubin 0.4 mg/dL (0.15-1.2)
--- NOTE | 2019-09-06 06:38 | PM.PN ---
Subjective Subjective: Interval history: The patient denies pain, but is still not aware of any flatus. Nursing reports that the nasogastric tube came out partially last night and so they readvanced it. They seem to think that its location is still a little in question. Vitals/I&O/Wt Last Vital Signs Temp 98.1 F 09/06/19 04:00 Pulse 95 09/06/19 04:00 Resp 22 H 09/06/19 04:00 BP 112/75 09/06/19 04:00 Pulse Ox 92 09/06/19 04:00 09/05/19 09/05/19 09/06/19 14:59 22:59 06:59 Intake Total 300 / 300 1100 / 1400 Output Total 1400 / 1400 Balance 300 / 300 -300 / 0 Weight last 48 hrs Weight 156 lb 8 oz Weight 170 lb 7 oz Weight 158 lb 9 oz Physical Exam Narrative: EXAM NARRATIVE: Bowel sounds are present but remain somewhat hypoactive. The abdomen is nondistended and soft. A&P Assessment and plan (1) Intractable nausea and vomiting: Better with NG tube. Increase ambulation. Will involve physical therapy if not already involved. Status: Acute Code(s): R11.2 - Nausea with vomiting, unspecified (2) Abnormal CT of the abdomen: Status: Acute Code(s): R93.5 - Abnormal findings on diagnostic imaging of other abdominal regions, including retroperitoneum Attestations Medical Necessity Statement*: See admitting service's notation. Coding Level of Care Code Acute Fruit Or Nut Picker [facility] Diagnoses Intractable nausea and vomiting R11.[address] of the abdomen R93.5
--- NOTE | 2019-09-06 06:50 | XR_ITS ---
WS: [id number] CHEST XRAY TECHNIQUE: Portable chest. CLINICAL INFORMATION: ng tube placement COMPARISON: None. FINDINGS: Enteric tube with tip at the GE junction. This should be advanced. Sidehole within distal esophagus. Heart: Normal cardiac silhouette. Lungs: Diffuse pulmonary metastasis. No focal consolidation. Bones: Normal visualized bony structures. XR/XR chest 1V portable [id number] IMPRESSION: 1. Enteric tube with tip in the proximal stomach. This should be advanced. 2. Diffuse pulmonary metastasis.
--- NOTE | 2019-09-06 06:53 | XR_ITS ---
WS: [id number] ABDOMEN KUB CLINICAL INFORMATION: Renal/ureteral calculi. COMPARISON: None. FINDINGS: Enteric tube is just to visualize the GE junction. This should be advanced. Scattered air and fluid i n normal caliber small bowel. Persistent air within the colon. Contrast in the bladder. XR/XR KUB [id number] Impression: 1. Enteric tube with sidehole just at the GE junction. This should be advanced . 2. Unremarkable bowel gas pattern.
[2019-09-06 07:02] LABS: Glucose Point of Care 132 mg/dL (70-110)
[2019-09-06] MEDS: metroNIDAZOLE IV 500 MG/100 ML PREMIX 100 MG IV ×2 (07:55→16:47)
--- NOTE | 2019-09-06 08:17 | XR_ITS ---
WS: [id number] CHEST XRAY TECHNIQUE: Portable chest. CLINICAL INFORMATION: ng tube placement COMPARISON: FINDINGS: Enteric tube has been advanced with tip in stomach. Heart: Normal cardiac silhouette. Lungs: Diffuse pulmonary metastasis. Bones: Normal visualized bony structures. XR/XR chest 1V portable [id number] IMPRESSION: 1. Enteric tube has been advanced with tip in the stomach. 2. Diffuse pulmonary metastasis.
[2019-09-06] MEDS: ciprofloxacin 400 MG/200 ML PREMIX 200 MG IV ×2 (08:37→20:47)
[2019-09-06] MEDS: phenytoin ER 100 mg Capsule 200 MG PO ×2 (09:39→17:25)
[2019-09-06] MEDS: pantoprazole 40 mg SDV IVP (09:39)
[2019-09-06] MEDS: levothyroxine 125 mcg Tablet PO (09:39)
--- NOTE | 2019-09-06 10:01 | PM.PN ---
Subjective Subjective: Interval history: Patient awake sitting up in bed at time of exam this morning. He reports that he is having discomfort from the NG tube. He reported that he is no longer having any tenderness in his abdomen, no vomiting overnight. Continues to feel weak and deconditioned. Denies any flatus Vitals/I&O/Wt Last Vital Signs Temp 97.9 F 09/06/19 07:53 Pulse 93 09/06/19 07:53 Resp 15 09/06/19 07:53 BP 129/82 09/06/19 07:53 Pulse Ox 93 09/06/19 07:53 09/05/19 09/06/19 09/06/19 22:59 06:59 14:59 Intake Total 1300 / 1600 100 / 1700 60 / 60 Output Total 1400 / 1400 Balance -100 / 200 100 / 300 60 / 60 Weight last 48 hrs Weight 70.987 kg Weight 77.309 kg Weight 71.923 kg Physical Exam Const: COMMON NORMALS: oriented x3 and alert GENERAL APPEARANCE: cooperative, ill appearing and frail appearing NUTRITIONAL APPEARANCE: cachectic and thin ORIENTATION/CONSCIOUSNESS: Yes awake, Yes oriented to person, Yes oriented to place and Yes oriented to time HENMT: COMMON NORMALS: normocephalic and head/scalp atraumatic HEAD & SCALP: normocephalic and atraumatic Eye: COMMON NORMALS: PERRL PUPIL: Yes PERRL Neck/C-Spine: COMMON NORMALS: supple GENERAL: Yes normal visual inspection Resp: COMMON NORMALS: normal respiratory effort and clear to auscultation bilaterally AUSCULTATION: clear to auscultation bilaterally, no rhonchi and no wheezes Cardio: COMMON NORMALS: regular rate, regular rhythm and no murmurs RATE: regular rate RHYTHM: regular rhythm GI: AUSCULTATION: Yes hypoactive bowel sounds PALPATION: No tender Extremity: COMMON NORMALS: no clubbing, cyanosis or edema and no calf tenderness Neuro: COMMON NORMALS: oriented x3, CN's II-XII intact bilaterally, moves all extremities and no focal motor deficits SENSORIUM/ORIENTATION: Yes alert, Yes oriented to person, Yes oriented to place and Yes oriented to time SPEECH: speech normal Psych: COMMON NORMALS: mental status grossly normal and cooperative OTHER: Tearful Skin: COMMON NORMALS: no rashes or lesions noted GENERAL SKIN EXAM: no rashes or lesions noted A&P Assessment and plan (1) Intractable nausea and vomiting: Intractable nausea and vomiting for the past several days, patient reports also worsening over the past several weeks secondary to diffuse enteritis General surgeon, Dr. Jaime consulted. Appreciate recommendations and assistance in patient's care. 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 On Pembrolizumab 200mg IV CT scan shows progression of pulmonary metastasis, this finding was discussed with patient Status: Acute Code(s): C64.9 - Malignant neoplasm of unspecified kidney, except renal pelvis (3) Seizure disorder: Continue on home Dilantin. Placed on seizure precautions Status: Acute Code(s): G40.909 - Epilepsy, unspecified, not intractable, without status epilepticus (4) Hypothyroidism: levothyroxine of 125 mcg daily Status: Acute Code(s): E03.9 - Hypothyroidism, unspecified Additional A&P Information Additional A&P Information: Continue Cipro and Flagyl and continue IV PPI. NG tube remains in place, will increase ambulation and as patient continues to improve we will clamp and remove as tolerated. Will follow up with surgical recommendations. Attestations Medical Necessity Statement*: Patient requires continued hospitalization due to intractable nausea vomiting with diffuse enteritis Coding Level of Care Code Acute Crime Scene Technician for [facility] Fwd Diagnoses Intractable nausea and vomiting R11.2 Clear cell carcinoma of kidney C64.9 Seizure disorder G40.909 Hypothyroidism E03.9
[2019-09-06 12:19] LABS: Glucose Point of Care 116 mg/dL (70-110)
--- NOTE | 2019-09-06 13:53 | PC.CHAP ---
Pastoral Care Encounter/Spiritual Assessment Type of Contact [] Declined race relations professor visit [x] Patient/Family/Request visit [] Outpatient visit [] Follow-up visit [] Physician referral [] Code/Alert [] Routine visit [] Staff referral [] Actively dying [] Patient sleeping [] Family support [] [] Out of room [] Palliative care [] [] Receiving care in room [] Pre-surgical visit [] Trauma [] Long length of stay [] ICU visit [] Other: Relational/Emotional Strength [x] Patient feels connected with others/family/visitors/staff [] Distress [] Loneliness/isolation [] Abandonment Spirituality of Patient [x] Person of Nani [x] Attends Methodist of their Nani [x] Believes in Prayer [x] Reads Bible or Roman Catholic materials [] There are Spiritual issues to be addressed Labor Arbitrator Hearing Office Interventions [x] Prayer [x] Active listening [x] Non-anxious presence [x] Spiritual/emotional support [] Crisis/trauma care [] Spiritual counseling [] Bereavement support [] Provided bereavement packet [] Provided Bible/devotional materials [] Provided toy/stuffed animal, coloring book to patient or family member [] Completed spiritual assessment [] Provided Communion [] Anointing/Battiest [] Salvation [] Other: Impact on Illness or Injury [] Angry [x] Fearful [x] Anxious [] Often cries [] Exhaustion [] Unable to work [] Unable to attend yazidi [] Unable to walk/stand [] Unable to read [] Unable to drive [] Unable to eat/drink [] Unable to sleep [] Unable to be with family [] Other: Summary anxious to find out what wrong visited lavelle camara Time spent with patient 7 min
--- NOTE | 2019-09-06 13:58 | PC.CHAP ---
Pastoral Care Encounter/Spiritual Assessment Type of Contact [] Declined pharmaceutical laboratory technician visit [] Patient/Family/Request visit [] Outpatient visit [] Follow-up visit [] Physician referral [] Code/Alert []x Routine visit [] Staff referral [] Actively dying [] Patient sleeping [] Family support [] [] Out of room [] Palliative care [] [] Receiving care in room [] Pre-surgical visit [] Trauma [] Long length of stay [] ICU visit [] Other: Relational/Emotional Strength [x] Patient feels connected with others/family/visitors/staff [] Distress [] Loneliness/isolation [] Abandonment Spirituality of Patient [x] Person of Nani [x] Attends Rastafarian of their Nani [] Believes in Prayer [] Reads Bible or Alevism materials [] There are Spiritual issues to be addressed Equipment Validation Engineer Interventions [x] Prayer [x] Active listening [x] Non-anxious presence [x] Spiritual/emotional support [] Crisis/trauma care [] Spiritual counseling [] Bereavement support [] Provided bereavement packet [] Provided Bible/devotional materials [] Provided toy/stuffed animal, coloring book to patient or family member [] Completed spiritual assessment [] Provided Communion [] Anointing/[place] [] Salvation [] Other: Impact on Illness or Injury [] Angry [x] Fearful [x Anxious [] Often cries [] Exhaustion [] Unable to work [] Unable to attend sabianist [] Unable to walk/stand [] Unable to read [] Unable to drive [] Unable to eat/drink [] Unable to sleep [] Unable to be with family [] Other: Summary very anxious to find out whats wrong visitd by jose rafael guzmán Time spent with patient 7 min one person
[2019-09-06] MEDS: dextrose 5%-sod chloride 0.9% 1,000 ML 75 ML IV (16:46)
[2019-09-06] MEDS: enoxaparin 40 mg/0.4 mL Syringe SUBCUT (16:46)
[2019-09-06] MEDS: potassium chloride premix 40 MEQ/100 ML PREMIX 25 MEQ IV (17:54)
--- NOTE | 2019-09-06 19:00 | PC.NURSE ---
Introduction of staff and report received, aidet.
[2019-09-07] VITALS (8 sets, daily range): BP systolic 109–123; BP diastolic 74–81; PULSE 87–94; RESP 18–22; TEMP 36.6–37.1; O2SAT 91–95
[2019-09-07] MEDS: dextrose 5%-sod chloride 0.9% 1,000 ML 75 ML IV ×2 (02:15→10:33)
[2019-09-07] MEDS: metroNIDAZOLE IV 500 MG/100 ML PREMIX 100 MG IV ×3 (02:16→15:02)
--- NOTE | 2019-09-07 05:51 | PC.NURSE ---
Pt noted not to have but 300ml greenish bile colored drainage in suction canister, also ng tube noted to have been pulled out farther than previously noted. ng tube re-advanced without difficulty, and once advanced and secured, another 700ml of same drainage was obtained. Pt assisted to bedside chair. Pt's gown and bedding changed, suction canister changed and pt assisted back to bed for comfort. Pt tolerated procedure with minimal discomfort. pt did have approximately 2-300 ml emesis as ng was being advanced.
[2019-09-07 06:08] LABS: Hemoglobin 10.2 g/dL (11.7-16.6); Lymphocytes # 0.2 10^3/uL (0.8-4.8); Lymphocytes % 7.6 %; Mean Corpuscular HGB Conc 31.9 g/dL (30.0-36.0); Mean Corpuscular Hemoglobin 28.9 pg (28.0-34.0); Mean Corpuscular Volume 90.7 fL (80-94); Mean Platelet Volume 8.4 fL (7.4-10.4); Monocytes # 0.5 10^3/uL (0.2-0.9); Monocytes % 25.4 %; Neutrophils # 1.3 10^3/uL (1.8-7.7); Nucleated Red Blood Cells % 0 %; Platelet Count 209 10^3/cmm (130-400); Red Blood Count 3.53 10^6/uL (4.1-5.3); Red Cell Distribution Width 15.4 % (12.1-15.1)
[2019-09-07 06:32] LABS: Anion Gap 18.5 (5-19); Blood Urea Nitrogen 9 mg/dL (8-23); Calcium 7.4 mg/Dl (8.8-10.2); Carbon Dioxide 20 mmol/L (22-29); Chloride 100 mmol/L (98-107); Glucose 129 mg/dL (74-106); Potassium 3.5 mmol/L (3.5-5.1); Sodium 135 mmol/L (136-145)
[2019-09-07] MEDS: phenytoin ER 100 mg Capsule 200 MG PO ×2 (08:27→17:09)
[2019-09-07] MEDS: levothyroxine 125 mcg Tablet PO (08:27)
[2019-09-07] MEDS: ciprofloxacin 400 MG/200 ML PREMIX 200 MG IV ×2 (09:34→20:37)
[2019-09-07] MEDS: pantoprazole 40 mg SDV IVP (09:37)
--- NOTE | 2019-09-07 09:55 | PM.PN ---
Subjective Subjective: Interval history: I am as weak as a cat today. The patient did get up and ambulate yesterday. He is still aware of any significant amounts of flatus or stool since I talked to him yesterday. Vitals/I&O/Wt Last Vital Signs Temp 98.5 F 09/07/19 07:36 Pulse 92 09/07/19 07:36 Resp 18 09/07/19 07:36 BP 120/81 09/07/19 07:36 Pulse Ox 91 09/07/19 07:36 09/06/19 09/07/19 09/07/19 22:59 06:59 14:59 Intake Total 600.000 / 2560.000 811.25 / 3371.250 1001.25 / 1001.25 Output Total 1300 / 1700 475 / 475 Balance 600.000 / 2160.000 -488.75 / 1671.250 526.25 / 526.25 Weight last 48 hrs Weight 161 lb 1 oz Weight 159 lb 14.4 oz Weight 156 lb 8 oz Physical Exam Narrative: EXAM NARRATIVE: Bowel sounds remain hypoactive but the abdomen is soft. A&P Assessment and plan (1) Intractable nausea and vomiting: The patient continues with his nasogastric tube which has limited his nausea. He has been started on steroids for possible enteritis secondary to immunotherapy. Status: Acute Code(s): R11.2 - Nausea with vomiting, unspecified Attestations Medical Necessity Statement*: See admitting service's notation. 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
--- NOTE | 2019-09-07 11:00 | PC.SOCIAL ---
IMM Page 2 of IMM explained to and signed by patient. Initialed, dated, and timed and placed in chart. Copy provided to patient.
[2019-09-07] MEDS: enoxaparin 40 mg/0.4 mL Syringe SUBCUT (15:01)
--- NOTE | 2019-09-07 16:05 | PM.PN ---
Subjective Subjective: Interval history: Patient awake in bed at time of exam this afternoon with family members at bedside. He reported feeling weak today. He reports that he has not passed any flatus today, occasional abdominal pain and continued nausea. Vitals/I&O/Wt Last Vital Signs Temp 98.5 F 09/07/19 15:00 Pulse 93 09/07/19 15:00 Resp 18 09/07/19 15:00 BP 123/79 09/07/19 15:00 Pulse Ox 93 09/07/19 15:00 09/07/19 09/07/19 09/07/19 06:59 14:59 22:59 Intake Total 811.25 / 3371.250 1322.50 / 1322.50 338.75 / 1661.25 Output Total 1300 / 1700 475 / 475 1000 / 1475 Balance -488.75 / 1671.250 847.50 / 847.50 -661.25 / 186.25 Weight last 48 hrs Weight 72.03 kg Weight 73.057 kg Weight 72.529 kg Weight 70.987 kg Physical Exam Const: COMMON NORMALS: oriented x3 and alert NUTRITIONAL APPEARANCE: thin ORIENTATION/CONSCIOUSNESS: Yes awake, Yes oriented to person and Yes oriented to place HENMT: COMMON NORMALS: normocephalic and head/scalp atraumatic HEAD & SCALP: normocephalic and atraumatic OTHER: NG tube in place Eye: COMMON NORMALS: PERRL PUPIL: Yes PERRL Neck/C-Spine: COMMON NORMALS: supple GENERAL: Yes normal visual inspection Resp: COMMON NORMALS: normal respiratory effort and clear to auscultation bilaterally EFFORT & INSPECTION: Yes able to speak in complete sentences AUSCULTATION: clear to auscultation bilaterally, no rhonchi and no wheezes Cardio: COMMON NORMALS: regular rate, regular rhythm and no murmurs RATE: regular rate RHYTHM: regular rhythm GI: OTHER: Soft, no appreciable tenderness to palpation, hypoactive bowel sounds Extremity: COMMON NORMALS: no clubbing, cyanosis or edema and no calf tenderness Neuro: COMMON NORMALS: oriented x3, CN's II-XII intact bilaterally, moves all extremities and no focal motor deficits SENSORIUM/ORIENTATION: Yes alert, Yes oriented to person and Yes oriented to place SPEECH: speech normal Psych: COMMON NORMALS: mental status grossly normal and cooperative Skin: COMMON NORMALS: no rashes or lesions noted GENERAL SKIN EXAM: no rashes or lesions noted A&P Assessment and plan (1) Intractable nausea and vomiting: Believed to be 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 Valentine and patient started on IV Solu-Medrol. Plan to transition to oral prednisone 60 mg for 4 days with a 40 mg gradual taper down once. 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 Will increase ambulation and continue on IV steroids at this time. As patient continues to show clinical improvement we will plan to clamp NG tube and ultimately remove NG tube with continued steroid taper. 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
[2019-09-07] MEDS: ondansetron 2 mg/ML SDV 2 mL 4 MG IVP (17:14)
[2019-09-08] VITALS (7 sets, daily range): BP systolic 104–124; BP diastolic 72–81; PULSE 81–88; RESP 16–20; TEMP 36.4–37; O2SAT 93–94
[2019-09-08] MEDS: metroNIDAZOLE IV 500 MG/100 ML PREMIX 100 MG IV ×3 (04:12→20:50)
[2019-09-08] MEDS: dextrose 5%-sod chloride 0.9% 1,000 ML 75 ML IV ×2 (04:16→12:01)
[2019-09-08 05:23] LABS: Basophils % 0.9 %; Hematocrit 27.8 % (42.0-52.0); Lymphocytes # 0.2 10^3/uL (0.8-4.8); Mean Corpuscular HGB Conc 32.4 g/dL (30.0-36.0); Mean Corpuscular Hemoglobin 27.6 pg (28.0-34.0); Mean Corpuscular Volume 85.3 fL (80-94); Mean Platelet Volume 8.7 fL (7.4-10.4); Monocytes # 0.5 10^3/uL (0.2-0.9); Monocytes % 21.7 %; Neutrophils # 1.6 10^3/uL (1.8-7.7); Neutrophils % 69.5 %; Nucleated Red Blood Cells % 0 %; Platelet Count 195 10^3/cmm (130-400); Red Blood Count 3.26 10^6/uL (4.1-5.3); Red Cell Distribution Width 15.3 % (12.1-15.1); White Blood Count 2.3 10^3/uL (4.0-10.0)
[2019-09-08 05:52] LABS: Anion Gap 12.1 (5-19); Blood Urea Nitrogen 8 mg/dL (8-23); Calcium 7.2 mg/Dl (8.8-10.2); Carbon Dioxide 22 mmol/L (22-29); Chloride 102 mmol/L (98-107); Glucose 121 mg/dL (74-106); Potassium 3.1 mmol/L (3.5-5.1); Sodium 133 mmol/L (136-145)
--- NOTE | 2019-09-08 06:00 | XR_ITS ---
WS: [id number] [facility], 09/08/2019 Clinical Data: abd pain Comparison: [facility], 09/06/2019. Findings: Nasogastric tube is curled within the fundus of the stomach. The air in the stomach, small bowel and colon is not increased. No abnormal intra-abdominal masses or calcifications are seen. There is no ev idence of obstruction. Sclerosis and loss of vertebral body height of L3 is consistent with metastatic disease. XR/XR [facility] portable [id number] Impression: 1. Nasogastric tube curled in the fundus of the stomach. 2. Probable metastatic disease to the L3 vertebral body.
[2019-09-08] MEDS: ciprofloxacin 400 MG/200 ML PREMIX 200 MG IV ×2 (09:21→19:19)
--- NOTE | 2019-09-08 09:28 | P.PN_ITS ---
Subjective Subjective: Interval history: The patient says he passed a little flatus last night and a little bit more this morning. He has been ambulating this morning. Vitals/I&O/Wt Last Vital Signs Temp 97.6 F 09/08/19 07:34 Pulse 88 09/08/19 07:34 Resp 18 09/08/19 07:34 BP 124/78 09/08/19 07:34 Pulse Ox 93 09/08/19 07:34 09/07/19 09/08/19 09/08/19 22:59 06:59 14:59 Intake Total 898.75 / 2221.25 75 / 2296.25 480 / 480 Output Total 1795 / 2270 225 / 2495 Balance -896.25 / -48.75 -150 / -198.75 480 / 480 Weight last 48 hrs Weight 162 lb 3.2 oz Weight 158 lb 12.8 oz Weight 161 lb 1 oz Weight 159 lb 14.4 oz Physical Exam Narrative: EXAM NARRATIVE: Abdomen remains soft. A&P Assessment and plan (1) Intractable nausea and vomiting: Clamp NG tube if the patient does well with the clamp, I think it can be safely removed. I will be away later today through early next week. If further surgical opinion/care is needed, the surgeon on-call will need to be notified (already discussed with Dr. Chambers). Status: Acute Code(s): R11.2 - Nausea with vomiting, unspecified Attestations Medical Necessity Statement*: See admitting service's notation. 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
[2019-09-08] MEDS: pantoprazole 40 mg SDV IVP (09:30)
[2019-09-08] MEDS: levothyroxine 125 mcg Tablet PO (09:33)
[2019-09-08] MEDS: phenytoin ER 100 mg Capsule 200 MG PO ×2 (09:34→17:17)
[2019-09-08] MEDS: ondansetron 2 mg/ML SDV 2 mL 4 MG IVP (11:54)
--- NOTE | 2019-09-08 13:45 | PC.PT ---
PT goals achieved ;Discharge PT
--- NOTE | 2019-09-08 14:16 | P.PN_ITS ---
Subjective Subjective: Interval history: Patient awake with family members at bedside at time of exam this morning. He reported that he was able to pass some gas this morning and overnight. Reported that he has been ambulating. Patient reports continued frustration with abdominal discomfort and continued nausea. He stated that he continues to feel like he has liquid coming up in the back of his throat. Sister at bedside requesting consideration of EGD, discussed with patient and family that this would not likely be a good idea due to the inflammation on imaging at this time and risk of perforation. Vitals/I&O/Wt Last Vital Signs Temp 98.6 F 09/08/19 11:22 Pulse 83 09/08/19 11:22 Resp 16 09/08/19 11:22 BP 115/81 09/08/19 11:22 Pulse Ox 94 09/08/19 11:22 09/07/19 09/08/19 09/08/19 22:59 06:59 14:59 Intake Total 1098.75 / 2421.25 175 / 2596.25 1381.25 / 1381.25 Output Total 1795 / 2270 225 / 2495 Balance -696.25 / 151.25 -50 / 101.25 1381.25 / 1381.25 Weight last 48 hrs Weight 74.049 kg Weight 73.573 kg Weight 72.03 kg Weight 73.057 kg Physical Exam Const: COMMON NORMALS: oriented x3 and alert GENERAL APPEARANCE: cooperative, ill appearing and frail appearing NUTRITIONAL APPEARANCE: cachectic and thin ORIENTATION/CONSCIOUSNESS: Yes awake, Yes oriented to person and Yes oriented to place HENMT: COMMON NORMALS: normocephalic and head/scalp atraumatic HEAD & SCALP: normocephalic and atraumatic OTHER: NG tube in place, clamped Eye: COMMON NORMALS: PERRL PUPIL: Yes PERRL Neck/C-Spine: COMMON NORMALS: supple GENERAL: Yes normal visual inspection Resp: COMMON NORMALS: normal respiratory effort and clear to auscultation bilaterally EFFORT & INSPECTION: Yes able to speak in complete sentences AUSCULTATION: clear to auscultation bilaterally, no rhonchi and no wheezes Cardio: COMMON NORMALS: regular rate, regular rhythm and no murmurs RATE: regular rate RHYTHM: regular rhythm GI: INSPECTION: No abdominal distension AUSCULTATION: Yes hypoactive bowel sounds PALPATION: No tender OTHER: Soft, no appreciable tenderness to palpation, proved bowel sounds Extremity: COMMON NORMALS: no clubbing, cyanosis or edema and no calf tenderness Neuro: COMMON NORMALS: oriented x3, CN's II-XII intact bilaterally, moves all extremities and no focal motor deficits SENSORIUM/ORIENTATION: Yes alert, Yes oriented to person and Yes oriented to place SPEECH: speech normal Psych: COMMON NORMALS: mental status grossly normal and cooperative OTHER: Tearful Skin: COMMON NORMALS: no rashes or lesions noted GENERAL SKIN EXAM: no rashes or lesions noted A&P Assessment and plan (1) Intractable nausea and vomiting: Believed to be 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 Valentine and patient started on IV Solu- Medrol Increase Solu-Medrol to every 12 hours NG tube clamped, patient passing flatus Discussed with Dr. Valentine today, again clarified that EGD would not be a good idea at this time, despite family request due to the acute inflammation on imaging. Plan to transition to oral prednisone 60 mg for 4 days with a 40 mg gradual taper down once. 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 We will continue to increase ambulation as tolerated. Solu-Medrol increased to 40 mg twice daily. 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
[2019-09-08 15:12] LABS: Magnesium 1.6 mg/dL (1.7-2.3)
[2019-09-08] MEDS: enoxaparin 40 mg/0.4 mL Syringe SUBCUT (15:15)
[2019-09-08] MEDS: promethazine 25 mg Tablet PO (17:17)
[2019-09-09] VITALS: BP 123/81; PULSE 86; RESP 16; TEMP 36.7; O2SAT 94
[2019-09-09] MEDS: metroNIDAZOLE IV 500 MG/100 ML PREMIX 100 MG IV ×3 (03:26→18:34)
[2019-09-09] MEDS: dextrose 5%-sod chloride 0.9% 1,000 ML 75 ML IV (03:26)
[2019-09-09 04:00] VITALS: BP 102/68; PULSE 85; RESP 16; TEMP 36.6; O2SAT 93
[2019-09-09 05:15] LABS: Basophils % 0.6 %; Hematocrit 29.1 % (42.0-52.0); Hemoglobin 9.5 g/dL (11.7-16.6); Lymphocytes # 0.1 10^3/uL (0.8-4.8); Lymphocytes % 7.8 %; Mean Corpuscular HGB Conc 32.6 g/dL (30.0-36.0); Mean Corpuscular Hemoglobin 29.1 pg (28.0-34.0); Mean Platelet Volume 8.8 fL (7.4-10.4); Monocytes # 0.4 10^3/uL (0.2-0.9); Monocytes % 21.1 %; Neutrophils # 1.3 10^3/uL (1.8-7.7); Neutrophils % 69.4 %; Nucleated Red Blood Cells % 0 %; Platelet Count 182 10^3/cmm (130-400); Red Blood Count 3.27 10^6/uL (4.1-5.3); Red Cell Distribution Width 15.4 % (12.1-15.1); White Blood Count 1.8 10^3/uL (4.0-10.0)
[2019-09-09 05:35] LABS: Anion Gap 14.4 (5-19); Blood Urea Nitrogen 8 mg/dL (8-23); Carbon Dioxide 24 mmol/L (22-29); Chloride 98 mmol/L (98-107); Glucose 123 mg/dL (74-106); Potassium 3.4 mmol/L (3.5-5.1); Sodium 133 mmol/L (136-145)
[2019-09-09 07:32] VITALS: BP 112/73; PULSE 83; RESP 18; TEMP 36.5; O2SAT 94
[2019-09-09] MEDS: ciprofloxacin 400 MG/200 ML PREMIX 200 MG IV ×2 (10:13→20:46)
[2019-09-09] MEDS: pantoprazole 40 mg SDV IVP (10:13)
[2019-09-09] MEDS: phenytoin ER 100 mg Capsule 200 MG PO ×2 (10:14→17:18)
[2019-09-09] MEDS: levothyroxine 125 mcg Tablet PO (10:14)
[2019-09-09 11:26] VITALS: BP 121/76; PULSE 87; RESP 16; TEMP 37; O2SAT 93
--- NOTE | 2019-09-09 11:47 | PM.PN ---
Subjective Subjective: Interval history: Patient awake in bed at time of exam today. He reports no nausea overnight. Continued full sensation in his abdomen. Reports that abdomen is less tender. Has passed only a small amount of gas this morning. Vitals/I&O/Wt Last Vital Signs Temp 98.6 F 09/09/19 11:26 Pulse 87 09/09/19 11:26 Resp 16 09/09/19 11:26 BP 121/76 09/09/19 11:26 Pulse Ox 93 09/09/19 11:26 09/08/19 09/09/19 09/09/19 22:59 06:59 14:59 Intake Total 1261.25 / 2742.50 611.25 / 3353.75 120 / 120 Output Total 300 / 300 Balance 1261.25 / 2742.50 311.25 / 3053.75 120 / 120 Weight last 48 hrs Weight 76.714 kg Weight 73.074 kg Weight 74.049 kg Weight 73.573 kg Physical Exam Const: COMMON NORMALS: oriented x3 and alert GENERAL APPEARANCE: cooperative, ill appearing and frail appearing NUTRITIONAL APPEARANCE: cachectic and thin ORIENTATION/CONSCIOUSNESS: Yes awake, Yes oriented to person and Yes oriented to place HENMT: COMMON NORMALS: normocephalic and head/scalp atraumatic HEAD & SCALP: normocephalic and atraumatic OTHER: NG tube in place, clamped Eye: COMMON NORMALS: PERRL PUPIL: Yes PERRL Neck/C-Spine: COMMON NORMALS: supple GENERAL: Yes normal visual inspection Resp: COMMON NORMALS: normal respiratory effort and clear to auscultation bilaterally EFFORT & INSPECTION: Yes able to speak in complete sentences AUSCULTATION: clear to auscultation bilaterally, no rhonchi and no wheezes Cardio: COMMON NORMALS: regular rate, regular rhythm and no murmurs RATE: regular rate RHYTHM: regular rhythm GI: INSPECTION: No abdominal distension AUSCULTATION: Yes hypoactive bowel sounds PALPATION: No tender OTHER: Soft, nontender, normal bowel sounds : COMMON NORMALS: Yes no CVA tenderness BLADDER/KIDNEY EXAM: Yes no CVA tenderness Back/Pelvis: COMMON NORMALS: no CVA tenderness Extremity: COMMON NORMALS: no clubbing, cyanosis or edema and no calf tenderness Neuro: COMMON NORMALS: oriented x3, CN's II-XII intact bilaterally, moves all extremities and no focal motor deficits SENSORIUM/ORIENTATION: Yes alert, Yes oriented to person and Yes oriented to place SPEECH: speech normal Psych: COMMON NORMALS: mental status grossly normal and cooperative Skin: COMMON NORMALS: no rashes or lesions noted GENERAL SKIN EXAM: no rashes or lesions noted A&P Assessment and plan (1) Intractable nausea and vomiting: Believed to be 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 Valentine and patient started on IV Solu-Medrol Increase Solu-Medrol to every 12 hours on 09/08/2019 Patient tolerating clear liquid diet and no evidence of obstruction, passing flatus, will remove NG tube Discussed with Dr. Valentine today, again clarified that EGD would not be a good idea at this time, despite family request due to the acute inflammation on imaging. Plan to transition to oral prednisone 60 mg for 4 days with a 40 mg gradual taper down once. 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 Continue on IV Solu-Medrol twice daily. 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
--- NOTE | 2019-09-09 12:07 | PC.NURSE ---
Pt refusing NG tube to be removed at this time stating I feel full and it's like it is coming back up . Pt requesting to be connected back to suctioning. Dr. Chambers made aware. Continue NG tube at this time and new order for portable KUB.
[2019-09-09] MEDS: enoxaparin 40 mg/0.4 mL Syringe SUBCUT (14:54)
[2019-09-09 15:28] VITALS: BP 117/76; PULSE 85; RESP 18; TEMP 36.4; O2SAT 91
[2019-09-09] MEDS: ondansetron 2 mg/ML SDV 2 mL 4 MG IVP (16:51)
--- NOTE | 2019-09-09 17:03 | PC.SOCIAL ---
IMM Updated Updated pt on Pg 2 IMM. Pt verbally understands. No questions voiced. Provided a copy to pt & left on their bedside table. Signed, dated, & timed original in chart.
[2019-09-09 19:26] VITALS: BP 95/67; PULSE 85; RESP 18; TEMP 36.7; O2SAT 91
[2019-09-10] VITALS: BP 127/78; PULSE 77; RESP 20; TEMP 36.3; O2SAT 92
[2019-09-10] MEDS: metroNIDAZOLE IV 500 MG/100 ML PREMIX 100 MG IV ×3 (03:39→18:30)
[2019-09-10 04:00] VITALS: BP 101/66; PULSE 82; RESP 19; TEMP 36.6; O2SAT 93
[2019-09-10 05:10] LABS: Anion Gap 12.6 (5-19); Blood Urea Nitrogen 6 mg/dL (8-23); Calcium 6.5 mg/Dl (8.8-10.2); Carbon Dioxide 23 mmol/L (22-29); Chloride 100 mmol/L (98-107); Glucose 130 mg/dL (74-106); Potassium 3.6 mmol/L (3.5-5.1); Sodium 132 mmol/L (136-145)
--- NOTE | 2019-09-10 06:00 | XRR_ITS ---
PROCEDURE INFORMATION: Exam: XR Abdomen, 1 View Exam date and time: 09/10/2019 7:52 AM Age: 74 years old Clinical indication: Abdominal pain; Acute; Additional info: Abd pain TECHNIQUE: Imaging protocol: XR of the abdomen. Views: Frontal supine view of the abdomen. 1 View. COMPARISON: CR XR KUB portable [id number] 09/08/2019 5:19 AM FINDINGS: Tubes, catheters and devices: NG tube is curled in the stomach fundus. Gastrointestinal tract: Normal. No bowel dilation. Bones/joints: Degenerative changes of the spine. Stable vertebral body loss of L3. XR/XR KUB portable [id number] IMPRESSION: No acute findings.
[2019-09-10 07:28] VITALS: BP 105/67; PULSE 77; RESP 18; TEMP 36.6; O2SAT 93
--- NOTE | 2019-09-10 08:03 | PC.NURSE ---
NG tube removed as ordered. Pt tolerated well.
[2019-09-10] MEDS: ciprofloxacin 400 MG/200 ML PREMIX 200 MG IV ×2 (08:47→21:07)
[2019-09-10] MEDS: phenytoin ER 100 mg Capsule 200 MG PO ×2 (08:48→18:20)
[2019-09-10] MEDS: pantoprazole DR 40 mg Tablet PO (08:48)
[2019-09-10] MEDS: levothyroxine 125 mcg Tablet PO (08:48)
--- NOTE | 2019-09-10 10:07 | P.PN_ITS ---
Subjective Subjective: Interval history: Patient awake in bed at time of exam this morning. He reported that he was able to have 2 bowel movements yesterday, stated that he is feeling somewhat better but hesitant about removing NG tube. Discussed with patient that if he is having bowel movements and tolerating an liquid diet without any nausea that it would be safe to remove NG tube today, he verbalized understanding and agreed with plan. Vitals/I&O/Wt Last Vital Signs Temp 97.9 F 09/10/19 07:28 Pulse 77 09/10/19 07:28 Resp 18 09/10/19 07:28 BP 105/67 09/10/19 07:28 Pulse Ox 93 09/10/19 07:28 09/09/19 09/10/19 09/10/19 22:59 06:59 14:59 Intake Total 820 / 1240 Balance 820 / 1240 Weight last 48 hrs Weight 76.232 kg Weight 76.714 kg Weight 73.074 kg Physical Exam Const: COMMON NORMALS: oriented x3 and alert GENERAL APPEARANCE: cooperative, ill appearing and frail appearing NUTRITIONAL APPEARANCE: cachectic and thin ORIENTATION/CONSCIOUSNESS: Yes awake, Yes oriented to person and Yes oriented to place HENMT: COMMON NORMALS: normocephalic and head/scalp atraumatic HEAD & SCALP: normocephalic and atraumatic OTHER: NG tube in place, clamped Eye: COMMON NORMALS: PERRL PUPIL: Yes PERRL Neck/C-Spine: COMMON NORMALS: supple GENERAL: Yes normal visual inspection Resp: COMMON NORMALS: normal respiratory effort and clear to auscultation bilaterally EFFORT & INSPECTION: Yes able to speak in complete sentences AUSCULTATION: clear to auscultation bilaterally, no rhonchi and no wheezes Cardio: COMMON NORMALS: regular rate, regular rhythm and no murmurs RATE: regular rate RHYTHM: regular rhythm GI: INSPECTION: No abdominal distension AUSCULTATION: Yes hypoactive bowel sounds PALPATION: No tender OTHER: Soft, nontender, normal bowel sounds Extremity: COMMON NORMALS: no clubbing, cyanosis or edema and no calf tenderness Neuro: COMMON NORMALS: oriented x3, CN's II-XII intact bilaterally, moves all extremities and no focal motor deficits SENSORIUM/ORIENTATION: Yes alert, Yes oriented to person and Yes oriented to place SPEECH: speech normal Psych: COMMON NORMALS: mental status grossly normal and cooperative OTHER: Tearful Skin: COMMON NORMALS: no rashes or lesions noted GENERAL SKIN EXAM: no rashes or lesions noted A&P Assessment and plan (1) Intractable nausea and vomiting: Believed to be 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 Status: Acute Code(s): C64.9 - Malignant neoplasm of unspecified kidney, except renal pelvis (3) Hypothyroidism: Continue on home levothyroxine 125 mcg daily Status: Acute Code(s): E03.9 - Hypothyroidism, unspecified Additional A&P Information Additional A&P Information: Removal of NG tube today, increase to full liquid diet Attestations Medical Necessity Statement*: Patient requires continued hospitalization due to intractable nausea vomiting with concern for diffuse enteritis secondary to immunotherapy with metastatic cancer Coding Level of Care Code Acute Tick Eradicator for [facility] Diagnoses Intractable nausea and vomiting R11.2 Clear cell carcinoma of kidney C64.9 Hypothyroidism E03.9
[2019-09-10 11:31] VITALS: BP 114/63; PULSE 73; RESP 18; TEMP 36.6; O2SAT 94
[2019-09-10] MEDS: enoxaparin 40 mg/0.4 mL Syringe SUBCUT (14:10)
[2019-09-10 15:27] VITALS: BP 112/70; PULSE 77; RESP 18; TEMP 36.8; O2SAT 93
--- NOTE | 2019-09-10 19:12 | PC.NURSE ---
Introduction of staff and report received, aidet.
[2019-09-10 19:32] VITALS: BP 110/67; PULSE 81; RESP 20; TEMP 36.6; O2SAT 93
[2019-09-11] VITALS: BP 112/56; PULSE 78; RESP 18; TEMP 36.8; O2SAT 94
[2019-09-11 04:00] VITALS: BP 105/66; PULSE 81; RESP 18; TEMP 37.1; O2SAT 93
[2019-09-11] MEDS: metroNIDAZOLE IV 500 MG/100 ML PREMIX 100 MG IV (04:00)
[2019-09-11 07:39] VITALS: BP 130/75; PULSE 75; RESP 18; TEMP 36.6; O2SAT 95
[2019-09-11] MEDS: levothyroxine 125 mcg Tablet PO (09:34)
[2019-09-11] MEDS: pantoprazole DR 40 mg Tablet PO (09:35)
[2019-09-11] MEDS: phenytoin ER 100 mg Capsule 200 MG PO (09:35)
[2019-09-11] MEDS: ciprofloxacin 400 MG/200 ML PREMIX 200 MG IV (09:36)
--- NOTE | 2019-09-11 10:34 | P.DS_ITS ---
Discharge Providers Date of Admission: 09/04/19 14:03 Date of Discharge: 09/11/19 Attending Provider at Admission: Kristie Chambers MD Attending Provider at Discharge: Kristie Chambers MD Primary Care Provider: Ze Ovalle Diagnoses at Discharge Discharge Diagnosis (1) Intractable nausea and vomiting: Status: Acute Problem details: Secondary to metastatic cancer and diffuse enteritis with immunotherapy (2) Clear cell carcinoma of kidney: Status: Acute Problem details: Clear-cell carcinoma of the right kidney, stage IV (T2b, NX, M1) Followed by Dr. Valentine (3) Hypothyroidism: Status: Acute Problem details: Continue levothyroxine 125 mcg daily Reason for Visit Reason for Visit: Reason For Visit: RENAL CELL CANCER/INTRACTABLE VOMITING/ BONE METS Hospital Course Hospital Course: Patient was directly admitted from oncology office due to concern for intractable nausea and vomiting. He was noted to have diffuse enteritis on CT scan of the abdomen and pelvis and distention of the stomach and duodenum. He was kept n.p.o. but due to continued nausea vomiting and abdominal discomfort NG tube was placed and surgery consult was ordered. He was started on ciprofloxacin and Flagyl due to concern for enteritis. Findings were discussed with oncologist, Dr. Valentine, and patient was started on IV steroids to help with enteritis due to concern for immunotherapy contributing to his symptoms. Patient had slow but gradual improvement in his symptoms and NG tube was removed after he had 2 bowel movements and continued to pass flatus. He was tolerating a clear liquid diet and then increase to a full liquid diet and did well with this. He was started on Reglan to help with his symptoms and continued on steroids, transition to oral steroids on date of discharge and discussed with him that this would need a long taper in the outpatient setting. On date of discharge patient was requesting discharge to home stating that he would wanted to continue with outpatient follow-up as he felt he would improve more in his home environment. Brother and sister were at bedside on date of discharge. Discharge Summary: Discharge to home Follow-up with Dr. Valentine in 3 to 5 days Continue with steroid taper Physical Exam Const: COMMON NORMALS: oriented x3 and alert GENERAL APPEARANCE: cooperative, ill appearing and frail appearing NUTRITIONAL APPEARANCE: cachectic and thin ORIENTATION/CONSCIOUSNESS: Yes awake, Yes oriented to person and Yes oriented to place HENMT: COMMON NORMALS: normocephalic and head/scalp atraumatic HEAD & SCALP: normocephalic and atraumatic OTHER: NG tube in place, clamped Eye: COMMON NORMALS: PERRL PUPIL: Yes PERRL Neck/C-Spine: COMMON NORMALS: supple GENERAL: Yes normal visual inspection Resp: COMMON NORMALS: normal respiratory effort and clear to auscultation bilaterally EFFORT & INSPECTION: Yes able to speak in complete sentences AUSCULTATION: clear to auscultation bilaterally, no rhonchi and no wheezes Cardio: COMMON NORMALS: regular rate, regular rhythm and no murmurs RATE: regular rate RHYTHM: regular rhythm GI: COMMON NORMALS: normal to inspection, nondistended, normoactive bowel sounds, soft to palpation and non-tender INSPECTION: No abdominal distension PALPATION: Yes soft and No tender OTHER: Soft, nontender, normal bowel sounds : COMMON NORMALS: Yes no CVA tenderness BLADDER/KIDNEY EXAM: Yes no CVA tenderness Back/Pelvis: COMMON NORMALS: no CVA tenderness Extremity: COMMON NORMALS: no clubbing, cyanosis or edema and no calf tenderness Neuro: COMMON NORMALS: oriented x3, CN's II-XII intact bilaterally, moves all extremities and no focal motor deficits SENSORIUM/ORIENTATION: Yes alert, Yes oriented to person and Yes oriented to place SPEECH: speech normal Psych: COMMON NORMALS: mental status grossly normal and cooperative Skin: COMMON NORMALS: no rashes or lesions noted GENERAL SKIN EXAM: no rashes or lesions noted Discharge Data Data Completed and Pending: Completed Studies During Hospitalization Category Date Time Status CT abdomen pelvis w con* [id number] Rout ine Cat Scan 09/04/19 14:51 Completed XR KUB [id number] Rout ine Exams 09/06/19 06:53 Completed XR KUB portable 7 4018 Routine Exams 09/05/19 16:55 Completed XR KUB portable 7 4018 Routine Exams 09/08/19 06:00 Completed XR KUB portable 7 4018 Routine Exams 09/10/19 06:00 Completed XR chest 1V alexandre ble 13746 Routine Exams 09/05/19 14:20 Completed XR chest 1V alexandre ble 63016 Urgent Exams 09/06/19 06:50 Completed XR chest 1V alexandre ble 48758 Urgent Exams 09/06/19 08:17 Completed Vitals: Last Vital Signs Temp 97.9 F 09/11/19 07:39 Pulse 75 01/13/20 07:39 Resp 18 09/11/19 07:39 BP 130/75 09/11/19 07:39 Pulse Ox 95 09/11/19 07:39 Discharge Plan Discharge Patient Disposition: Home, Self-Care Condition: Stable Prescriptions: New potassium chloride 10 mEq Tablet Extended Release 20 meq PO DAILY 30 Days Qty: 90 RF: 0 pantoprazole 40 mg Tablet,Delayed Release (Dr/Ec) 40 mg PO DAILY 30 Days Qty: 30 RF: 0 ciprofloxacin HCl 500 mg tablet 500 mg PO BID 3 Days Qty: 6 RF: 0 metoclopramide HCl [Reglan] 5 mg tablet 5 mg PO Q8H 5 Days Qty: 15 RF: 0 metronidazole [Flagyl] 500 mg tablet 500 mg PO TID 3 Days Qty: 9 RF: 0 prednisone 20 mg tablet 60 mg PO DIRECTED 8 Days Qty: 20 RF: 0 ondansetron HCl [Zofran] 4 mg tablet 4 mg PO DAILY PRN (Reason: nausea and vomiting) 5 Days Qty: 20 RF: 0 Continued phenytoin sodium extended 200 mg Capsule 200 mg PO BID RF: 0 levothyroxine 100 mcg Tablet 125 mcg PO DAILY RF: 0 Discontinued potassium chloride 10 mEq Capsule, Extended Release 10 meq PO DAILY RF: 0 Discharge Orders: Discharge Order (Routine); Ordered 09/11/19 Ordered By: Kristie Chambers Referrals: Inderjit Valentine MD [Hospitalist] - 1-3 days (Follow-up with Dr. Valentine as soon as first appointment is available to discuss continued steroid taper and further treatment recommendations) Discharge Diet: Advance as tolerated Discharge Activity: Increase activity as tolerated Activity Restrictions/Additional Instructions: Started on prednisone 60 mg daily for 4 days, then take 40 mg daily for 4 days, then continue with the steroid taper to be prescribed by Dr. Valentine Follow-up with Dr. Valentine's office in 3 to 5 days Continue with Reglan, Zofran as needed for nausea, Protonix to help with reflux. Continue on ciprofloxacin and Flagyl for enteritis Discharge Attestations Time Spent in Discharge Care*: greater than 30 min Quality Metrics Clinical Quality Measures During this hospital stay, did patient experience: None Coding Level of Care Code Acute Interviewing Clerk for Chg Fwd Diagnoses Intractable nausea and vomiting R11.2 Clear cell carcinoma of kidney C64.9 Hypothyroidism E03.9
[2019-09-11 11:24] VITALS: BP 115/76; PULSE 81; RESP 18; TEMP 36.6; O2SAT 95
[2019-09-11] MEDS: calcium carbonate 500 mg Chew Tablet 1000 MG PO (11:54)
[2019-09-11 11:59] VITALS: RESP 18; TEMP 36.6; O2SAT 95
--- NOTE | 2019-09-11 12:23 | DCPLANNER ---
Patient received The important message from [employer]. Signed and placed in the chart. Patient now has a copy.
== END 2019-09-11 13:19 | disposition home or self-care (01) | DRG 392 ==
PROVIDERS: Admitting Provider Family Medicine; Family Provider Family Medicine; PCP Family Medicine; Visit Provider Family Medicine
DX: K52.9 Noninfective gastroenteritis and colitis, unspecified (principal); C64.9 Malignant neoplasm of unspecified kidney, except renal pelvis; C79.51 Secondary malignant neoplasm of bone; G40.909 Epilepsy, unspecified, not intractable, without status epilepticus; E03.9 Hypothyroidism, unspecified; Z92.3 Personal history of irradiation; M19.90 Unspecified osteoarthritis, unspecified site; K31.89 Other diseases of stomach and duodenum; Z85.820 Personal history of malignant melanoma of skin
CPT/HCPCS: 12345; 36415; 36416; 71045; 74018; 74177; 80048; 80053; 80185; 82962; 83605; 83615; 83735; 84439; 84443; 85025; 93005; 96360; 96361; 96365; 96367; 96372; 96375; 97116; 97161; 99214; 99221; C9113; J0744; J1100; J1650; J2405; J2920; J3480; J7030; Q0169; Q9967; S0030

== ENCOUNTER 2019-09-25 11:48 | Outpatient (RCR) | payer MEDICARE, SELFPAY ==
--- NOTE | 2019-09-16 16:29 | ONC FU_ITS ---
Dr. Valentine Patient Follow-Up Note Patient: Joshua Warren Unit #: [id number]: [id number] Dicatated By: Inderjit Valentine M.D.Date of Visit:Sep 12, 2019 Onc Med Follow-up/Prog Note Chief Complaint: Renal cell cancer. History of Present Illness: This is a 74 year-old man with clear-cell carcinoma the right kidney, stage IV (T2b, NX, M1). He had presented with back pain, which he says had started for 5 months ago. An x-ray of the thoracic spine on 12/14/2018 showed anterior wedging in the upper thoracic spine which appeared chronic. There was also chronic thoracic ankylosis with partial disc space fusion. X-ray of the lumbar spine on 02/15/2019 showed 30% anterior wedge compression fracture at L3 which was felt to be suspicious for pathologic fracture. Also noted were multiple pulmonary nodules suspicious for metastatic disease. Further evaluation with MRI of the lumbar spine on 02/28/2019 showed suspected pathologic compression fracture at L3 with epidural extension of disease and mild central canal stenosis. There was a paravertebral soft tissue component to the L3 pathologic compression with edema. There was a partially included lobulated mass involving the right kidney lower pole measuring 7-8 cm, suspicious for renal cell carcinoma. Additional metastatic lesions involving the T9 and T10 vertebral bodies were noted on the fitting room associate imaging, there were additional bony metastatic lesions at the S3 vertebral body. Chest CT at that time showed innumerable metastatic pulmonary nodules throughout both lungs and masslike right hilar and infrahilar lymphadenopathy. A heterogeneous enhancing lesion involving the right adrenal gland measuring 1.8 cm was nonspecific but suspicious for metastatic disease. CT abdomen/pelvis on 03/17/2019 confirmed the presence of a large lobulated right renal mass with central necrosis measuring 10.3 x 8.9 x 8.6 cm, consistent with renal cell neoplasm. There was extension into the renal pelvis and there is perinephric soft tissue infiltration around the right kidney, possibly due to tumor extension. There was no evidence for tumor thrombus in the right renal vein or inferior vena cava. The right adrenal mass measured 2.0 cm and was suspicious for a metastatic lesion. He underwent CT directed needle biopsy of the right renal mass on 04/03/2019. Pathology showed malignant neoplasm most consistent with clear cell renal cell carcinoma. I had seen him initially on 04/12/2019. Due to the severity of his pain, I had initially opted to refer him for palliative radiation. He had further evaluation with MRI of the thoracic spine, which showed enhancing metastatic lesions at numerous other sites. He then underwent palliative radiation to the thoracic spine, completed on 04/26/2019 to a total dose of 3000 cGy, and to the lumbar spine, completed on 04/28/2019 to a total dose of 4000 cGy. During that time, he had developed fairly intractable nausea/vomiting. His medical history is otherwise significant for previous skin cancer excision from the left postauricular area. He indicates that it was melanoma, but I do not have confirmation of that. He had undergone excision of a basal cell skin cancer from the right antecubital in 2012. He has a history of seizure disorder, and he also has degenerative arthritis. He has had no other prior medical illnesses. He is a nonsmoker. INTERIM HISTORY: I had seen him for a follow-up visit on 05/02/2019. At that point his pain had improved significantly, but he was still having pretty severe nausea/vomiting. He had very poor oral intake and very poor performance status. He was given IV hydration and IV anti-emetics on multiple occasions. During that time he had further evaluation with brain MRI, which showed no evidence of metastatic disease. During subsequent follow-up, he had gradual improvement in his GI symptoms. On 05/16/2019 he began systemic therapy with pembrolizumab in combination with axitinib. He tolerated the initial infusion of pembrolizumab without acute toxicity, and he continued with cycle 2 on 06/06/2019. A repeat CT abdomen/pelvis on 06/07/2019 did show evidence of therapeutic response in the right renal neoplasm, and multiple pulmonary metastatic nodules, and in the right adrenal nodule compared to the prior study from 05/01/2019. Pathologic compression fracture at L3 appeared stable. There did appear to be progressive lytic metastatic disease involving the S2, S3, and S4 vertebral bodies, the left sacral ala, and probably the left ischium. With those findings, he was referred to Dr. Ho, and he underwent additional palliative radiation to the sacrum and left ischium/acetabulum. He completed treatment on 06/28/2019, total dose 3000 cGy to each site. He then continued treatment with pembrolizumab at 3-week intervals. As of 08/16/2019 he received his 5th cycle of treatment. He is seen for a follow-up visit. I had seen him for a follow-up visit on 09/04/2019. At that point he had developed severe nausea/vomiting and diarrhea. His weight had dropped 10 pounds, and has been a significant decline in his performance status. He was ill enough to require hospital admission. His CT abdomen/pelvis showed similar appearance of the right renal mass measuring 4.6 x 7.0 x 7.1 cm. There was evidence of diffuse metastatic bone disease, but also with similar appearance. The most significant new finding was diffuse small bowel wall thickening consistent with infectious, ischemic, or inflammatory enteritis. There was associated distention of the stomach. The findings appeared consistent with treatment-induced enteritis, and he was treated with high-dose steroid therapy along with supportive and symptomatic measures. He did show symptomatic improvement, though it was gradual and not all that dramatic. He was, though, able to get off IV fluid support and he was then discharged home. He returns for a follow-up visit. He is still very weak and has very limited activity. ECOG score is 3. Appetite is poor. He has not had fever or night sweating. He complains of soreness in his mouth/teeth. He is short of breath with effort. He has not had cough. He is not having chest pain. His GI symptoms are improving, though he still has some nausea. He has been able to have some bowel movement, and he is passing gas. Bladder function has been okay. He currently is not having any significant joint or bone pain. He has no focal neurologic symptoms. Medications: Ciprofloxacin HCl 1 Tablet (of 500 mg) Oral b.i.d. for 3 days, Ibuprofen 2 Tablet (of 200 mg) Oral four times a day PRN, Levothyroxine Sodium 1 Tablet (of 100 mcg) Oral daily, LORazepam 0.5 - 1 Tablet (of 1 mg) Oral t.i.d. PRN, metroNIDAZOLE 1 Tablet (of 500 mg) Oral t.i.d. for 3 days, Ondansetron HCl 1 Tablet (of 8 mg) Oral q 8 hours PRN, Pantoprazole Sodium 1 Tablet (of 40 mg) Tablet, enteric coated Oral, Phenytoin Sodium Extended 2 Capsule (of 100 mg) Oral b.i.d., Potassium Chloride ER 2 Tablet (of 10 meq) Tablet, controlled release Oral daily PRN, predniSONE 1 Tablet (of 20 mg) Oral t.i.d., Promethazine HCl 1 Tablet (of 25 mg) Oral q 8 hours PRN Allergies: No Known Allergies. Review of Systems: Constitutional - His energy is low. He is up some at home, but is mainly sedentary. His appetite is poor, but his weight is stable. No fever, chills, hot flashes, or night sweats. ECOG score is 3, ENMT - No sinus congestion/drainage. No mouth sores. No sore throat. He has difficulty swallowing, Hematologic/Lymphatic - No abnormal bruising or bleeding, Respiratory - He has shortness of breath with activity. No cough. No pleuritic pain or hemoptysis, Cardiovascular - No angina pain. No palpitations, Gastrointestinal - He has nausea and vomiting. No heartburn or acid reflux. No diarrhea or constipation. No blood in the stool or black stools, Genitourinary (M) - No dysuria or hematuria. He has urinary frequency at night. No urgency or incontinence, Musculoskeletal - No joint or bone pain, Integumentary - No skin complications, Neurologic - No headache or dizziness. No numbness/paresthesias or other focal neurologic symptoms, Psychiatric - No anxiety or depression. No insomnia. Vital Signs: Performed on Sep 12, 2019 14:26 Height - 76.00 in Weight - 165.8 lbs (HIGH) BSA - 2.05 sq.m BMI - 20.18 Temperature - 98.5 F Pulse - 86 /min Respiration - 24 /min BP - 94/60 mm(hg) O2 Sat - 93 % (LOW) Pain - 0 Physical Examination: Constitutional - He appears generally weak, Eyes - Sclerae nonicteric. Conjunctivae clear, ENMT - No lesions noted in the oral cavity, Hematologic/Lymphatic - No cervical, clavicular, or axillary adenopathy, Respiratory - Lungs are clear with good air movement bilaterally, Cardiovascular - Heart rhythm is regular. There is no murmur, gallop, or rub noted, Abdomen - Soft. Liver and spleen are not enlarged. There is no abdominal mass or ascites noted and there is no inguinal adenopathy, Extremities - There is mild pedal edema, Neurologic - No focal neurologic deficits noted. Lab/Imaging: Test performed on Sep 04, 2019 12:37 Phenytoin (Dilantin) 3.2 mcg/mL Glucose 94 mg/dL LDH, Total 286 IU/L BUN 13 mg/dL Creatinine 1.3 mg/dL Cr Clearance (Est) 51.79 mL/min Sodium 129 mmol/L Potassium 3.8 mmol/L Chloride 91 mmol/L CO2 18 mmol/L Calcium 8.3 mg/dL Protein, Total 6.4 g/dL Albumin 3.2 g/dL Globulin 3.2 g/dL Bilirubin, Total 0.4 mg/dL Alkaline Phosphatase 91 IU/L AST (SGOT) 20 IU/L ALT (SGPT) 22 IU/L Test performed on Sep 04, 2019 12:32 WBC 2.6 10^9/L RBC 3.74 10^12/L HGB 10.6 g/dL HCT 32.4 % MCV 86.6 fl MCH 28.3 pg MCHC 32.7 g/dL RDW 15.3 % Platelet Count 212 10^9/L Neutrophils (Gran) 1.4 10^9/L Lymphocytes 0.3 10^9/L Monocytes 0.9 10^9/L Eosinophils 0 10^9/L Basophils 0 10^9/L Impression: 1. Patient with clear-cell carcinoma of the right kidney, stage IV (T2b, NX, M1). 2. He had MRI evidence of metastatic bone involvement with pathologic compression fracture of the L3 vertebral body and metastatic involvement at multiple sites in the thoracic spine. 3. He had poor performance status. His other medical illnesses include: 4. Degenerative arthritis/degenerative disease of the spine. 5. History of seizure disorder. 6. History of melanoma excision from the left postauricular area and excision of basal cell carcinoma from the right antecubital space. He had severe pain associated with the metastatic bone involvement, and initially he was referred for palliative radiation. He completed treatment to the thoracic spine on 04/26/2019, total dose 3000 cGy, and to the lumbar spine on 04/28/2019, total dose 4000 cGy. During the radiation he developed fairly intractable nausea/vomiting, and he continued to have very marginal performance status. He did appear, though, to have a very good clinical response the radiation. During subsequent follow-up he had gradual improvement in his GI symptoms. On 05/16/2019 he began treatment with pembrolizumab in combination with axitinib. Initally he had been tolerating the treatment well, though he continued to have limited activity. His performance status, though, was gradually improving. Repeat CT abdomen/pelvis on 06/07/2019 showed evidence of therapeutic response of the right renal neoplasm, multiple pulmonary metastatic nodules, and right adrenal nodule. There was, however, progressive lytic metastatic disease involving the sacrum and pelvis. He was then given additional palliative radiation to the pelvis, completed on 06/28/2019 to a total dose of 3000 cGy. He proceeded with cycle 3 of pembrolizumab on 07/05/2019, and he then continued treatment at 3-week intervals. He received cycle 5 on 08/16/2019. At that point the axitinib was put on hold due to persistent neutropenia. On 09/04/2019 he was admitted to the hospital with intractable nausea/vomiting and diarrhea. His CT scan of the abdomen/pelvis showed evidence of diffuse small bowel wall thickening, consistent with treatment related inflammatory enteritis. There was stable appearance to the renal mass and the bony metastatic disease, but there did appear to be progression of his pulmonary metastases. He has had some improvement on steroid therapy, but his overall condition remains poor and his prognosis at this point appears to be very poor. Plan: He will now continue with symptomatic/supportive care. We discussed the possibility of hospice referral, which he declines. He will be given a prescription for viscous xylocaine for the sore mouth. He will return for a followup visit in one week. Signed By: Inderjit Valentine M.D. <<Signature on File>>
[2019-09-22 11:10] LABS: Hematocrit 31.3 % (42.0-52.0); Hemoglobin 10.2 g/dL (11.7-16.6); Lymphocytes # 0.2 10^3/uL (0.8-4.8); Lymphocytes % 4.8 %; Mean Corpuscular HGB Conc 32.6 g/dL (30.0-36.0); Mean Corpuscular Hemoglobin 28.1 pg (28.0-34.0); Mean Corpuscular Volume 86.2 fL (80-94); Mean Platelet Volume 9.3 fL (7.4-10.4); Monocytes # 0.5 10^3/uL (0.2-0.9); Monocytes % 13.4 %; Neutrophils # 2.7 10^3/uL (1.8-7.7); Neutrophils % 81.2 %; Nucleated Red Blood Cells % 0 %; Platelet Count 170 10^3/cmm (130-400); Red Blood Count 3.63 10^6/uL (4.1-5.3); Red Cell Distribution Width 15.9 % (12.1-15.1); White Blood Count 3.4 10^3/uL (4.0-10.0)
--- NOTE | 2019-09-22 11:21 | CT_ITS ---
WS: [id number] CT ABDOMEN PELVIS TECHNIQUE: Contrast-enhanced CT of the abdomen and pelvis with coronal and sagittal reformatted image s. CLINICAL INFORMATION: RENAL CELL CANCER COMPARISON: CT 2019 and DLP: 886.[address] scans at [facility] use at least one of these dose optimization techniques: automat ed exposure control; mA and/or kV adjustment per patient size (includes targeted exams where dose is matched to clinical indication); or iterative reconstruction. FINDINGS: Again seen is the enhancing heterogeneous partially necrotic right renal carcinoma not significantly changed since the recent examination. Renal vein and IVC appear patent. Perinephric involvement is un changed. Normal left kidney. Small left renal cyst. Both ureters are decompressed. Innumerable pulmonary metastasis in both lung bases consistent with metastatic disease is unchanged s dru the recent examination. Stable right adrenal metastasis. Left adrenal gland is normal. Multiple stable lung metastasis with stable L3 pathologic compression fracture. Moderate central beverly l stenosis at this level is unchanged. Stable metastatic lesions involving the bony pelvis and sacrum . Liver is normal in appearance. Normal portal vein and splenic vein. Low-attenuation lesion right hepa tic lobe is stable over multiple prior examinations. Small amount of perihepatic ascites. Mild perisp lenic ascites. Diffuse abdominal mesenteric edema and anasarca. Fluid distended gallbladder is unchan ged in appearance. Ascites in the midabdomen and along the celiac root. Mesenteric induration within the abdomen and pelvis. Colon is normal in appearance. Diffuse thickening and some mucosal enhancement involving the small alen wel more prominent in the left upper quadrant mid abdomen and pelvis is similar in appearance to the prior examination likely due to infectious or inflammatory enteritis. No evidence of high-grade obstr uction. No free air. Diffuse mesenteric induration partially due to ascites however superimposed nithin toneal carcinomatosis is also a consideration. CT/CT abdomen pelvis w con* [id number] IMPRESSION: 1. Interval development of diffuse mesenteric edema and body wall anasarca wit h a small amount of perihepatic and perisplenic ascites. 2. Superimposed peritoneal carcinomatosis within the abdomen also should be co nsidered in particular in the left upper quadrant about the proximal small gloria l loops. 3. Diffuse abnormal thickening of the small bowel with some mucosal enhancemen t is similar in appearance to prior examination likely due to enteritis. No dheeraj dence of high-grade obstruction. Persistent air within the colon. 4. Fluid distended gallbladder is unchanged in appearance. 5. Necrotic right renal carcinoma is unchanged. No hydronephrosis. 6. Diffuse pulmonary metastasis in the lower lobes unchanged. 7. Multiple bony metastasis are stable with pathologic compression at L3. This is unchanged in appearance with moderate central canal stenosis.
[2019-09-22 11:25] LABS: Alanine Aminotransferase 16 U/L (0-41); Albumin Level 3.2 g/dL (3.5-5.2); Alkaline Phosphatase 67 IU/L (40-130); Anion Gap 22.9 (5-19); Aspartate Amino Transferase 19 U/L (0-40); Blood Urea Nitrogen 12 mg/dL (8-23); Calcium 6.8 mg/dL (8.5-10.5); Carbon Dioxide 19 mmol/L (22-29); Chloride 90 mmol/L (98-107); Globulin 2.3 g/dL (1.3-4.6); Glucose 86 mg/dL (74-106); Lactate Dehydrogenase 298 U/L (135-225); Potassium 3.9 mmol/L (3.5-5.1); Sodium 128 mmol/L (136-145); Total Bilirubin 0.4 mg/dL (0.15-1.2); Total Protein 5.5 g/dL (6.6-8.7)
[2019-09-22] MEDS: iohexol 300 mg/mL 100 mL Btl IV (11:44)
[2019-09-22] MEDS: sodium chloride 0.9% 1,000 ML 188 ML IV (11:54)
--- NOTE | 2019-09-24 10:53 | ONC FU_ITS ---
Dr. Valentine Patient Follow-Up Note Patient: Joshua Warren Unit #: [id number]: [id number] Dicatated By: Inderjit Valentine M.D.Date of Visit:Sep 22, 2019 Onc Med Follow-up/Prog Note Chief Complaint: Renal cell cancer. History of Present Illness: This is a 74 year-old man with clear-cell carcinoma the right kidney, stage IV (T2b, NX, M1). He had presented with back pain, which he says had started for 5 months ago. An x-ray of the thoracic spine on 12/14/2018 showed anterior wedging in the upper thoracic spine which appeared chronic. There was also chronic thoracic ankylosis with partial disc space fusion. X-ray of the lumbar spine on 02/15/2019 showed 30% anterior wedge compression fracture at L3 which was felt to be suspicious for pathologic fracture. Also noted were multiple pulmonary nodules suspicious for metastatic disease. Further evaluation with MRI of the lumbar spine on 02/28/2019 showed suspected pathologic compression fracture at L3 with epidural extension of disease and mild central canal stenosis. There was a paravertebral soft tissue component to the L3 pathologic compression with edema. There was a partially included lobulated mass involving the right kidney lower pole measuring 7-8 cm, suspicious for renal cell carcinoma. Additional metastatic lesions involving the T9 and T10 vertebral bodies were noted on the car groomer imaging, there were additional bony metastatic lesions at the S3 vertebral body. Chest CT at that time showed innumerable metastatic pulmonary nodules throughout both lungs and masslike right hilar and infrahilar lymphadenopathy. A heterogeneous enhancing lesion involving the right adrenal gland measuring 1.8 cm was nonspecific but suspicious for metastatic disease. CT abdomen/pelvis on 03/17/2019 confirmed the presence of a large lobulated right renal mass with central necrosis measuring 10.3 x 8.9 x 8.6 cm, consistent with renal cell neoplasm. There was extension into the renal pelvis and there is perinephric soft tissue infiltration around the right kidney, possibly due to tumor extension. There was no evidence for tumor thrombus in the right renal vein or inferior vena cava. The right adrenal mass measured 2.0 cm and was suspicious for a metastatic lesion. He underwent CT directed needle biopsy of the right renal mass on 04/03/2019. Pathology showed malignant neoplasm most consistent with clear cell renal cell carcinoma. I had seen him initially on 04/12/2019. Due to the severity of his pain, I had initially opted to refer him for palliative radiation. He had further evaluation with MRI of the thoracic spine, which showed enhancing metastatic lesions at numerous other sites. He then underwent palliative radiation to the thoracic spine, completed on 04/26/2019 to a total dose of 3000 cGy, and to the lumbar spine, completed on 04/28/2019 to a total dose of 4000 cGy. During that time, he had developed fairly intractable nausea/vomiting. His medical history is otherwise significant for previous skin cancer excision from the left postauricular area. He indicates that it was melanoma, but I do not have confirmation of that. He had undergone excision of a basal cell skin cancer from the right antecubital in 2012. He has a history of seizure disorder, and he also has degenerative arthritis. He has had no other prior medical illnesses. He is a nonsmoker. INTERIM HISTORY: I had seen him for a follow-up visit on 05/02/2019. At that point his pain had improved significantly, but he was still having pretty severe nausea/vomiting. He had very poor oral intake and very poor performance status. He was given IV hydration and IV anti-emetics on multiple occasions. During that time he had further evaluation with brain MRI, which showed no evidence of metastatic disease. During subsequent follow-up, he had gradual improvement in his GI symptoms. On 05/16/2019 he began systemic therapy with pembrolizumab in combination with axitinib. He tolerated the initial infusion of pembrolizumab without acute toxicity, and he continued with cycle 2 on 06/06/2019. A repeat CT abdomen/pelvis on 06/07/2019 did show evidence of therapeutic response in the right renal neoplasm, and multiple pulmonary metastatic nodules, and in the right adrenal nodule compared to the prior study from 05/01/2019. Pathologic compression fracture at L3 appeared stable. There did appear to be progressive lytic metastatic disease involving the S2, S3, and S4 vertebral bodies, the left sacral ala, and probably the left ischium. With those findings, he was referred to Dr. Ho, and he underwent additional palliative radiation to the sacrum and left ischium/acetabulum. He completed treatment on 06/28/2019, total dose 3000 cGy to each site. He then continued treatment with pembrolizumab at 3-week intervals. As of 08/16/2019 he received his 5th cycle of treatment. He is seen for a follow-up visit. I had seen him for a follow-up visit on 09/04/2019. At that point he had developed severe nausea/vomiting and diarrhea. His weight had dropped 10 pounds, and has been a significant decline in his performance status. He was ill enough to require hospital admission. His CT abdomen/pelvis showed similar appearance of the right renal mass measuring 4.6 x 7.0 x 7.1 cm. There was evidence of diffuse metastatic bone disease, but also with similar appearance. The most significant new finding was diffuse small bowel wall thickening consistent with infectious, ischemic, or inflammatory enteritis. There was associated distention of the stomach. The findings appeared consistent with treatment-induced enteritis, and he was treated with high-dose steroid therapy along with supportive and symptomatic measures. He did show symptomatic improvement, though it was gradual and not all that dramatic. He was, though, able to get off IV fluid support and he was then discharged home. I had seen him for a follow-up visit on 09/12/2019. He was still very weak and he was still having difficulty with his oral intake. He preferred to just continue with symptomatic/supportive care measures. He declined hospice. He is seen again for a follow-up visit. He had stopped his steroid therapy when his prednisone prescription ran out. He has continued to have pressure in the abdominal area and nausea/vomiting. He has very minimal oral intake. He is passing some gas, but he passes only a small amount of stool. He is not having fever or night sweats. He is very weak and he has very limited activity. ECOG score is 3. He has shortness of breath. He very seldom has cough. He has some chest discomfort, attributable to acid reflux, mainly when he is lying down. He has no complaints, but urine output is not very good. He complains that he is weak, but he is not really having much pain. He is lightheaded when he stands up. Medications: Ibuprofen 2 Tablet (of 200 mg) Oral four times a day PRN, Levothyroxine Sodium 1 Tablet (of 125 mcg) Oral daily, Lidocaine 5 mL (of 2 %) Solution Oral four times a day, LORazepam 0.5 - 1 Tablet (of 1 mg) Oral t.i.d. PRN, Ondansetron HCl 1 Tablet (of 8 mg) Oral q 8 hours PRN, Pantoprazole Sodium 1 Tablet (of 40 mg) Tablet, enteric coated Oral, Phenytoin Sodium Extended 2 Capsule (of 100 mg) Oral b.i.d., Potassium Chloride ER 1 Tablet (of 10 meq) Tablet, controlled release Oral daily PRN, Promethazine HCl 1 Tablet (of 25 mg) Oral q 8 hours PRN Allergies: No Known Allergies. Review of Systems: Constitutional - He is very weak and he has very minimal activity. Appetite and oral intake are very poor. He has no fever or night sweats. ECOG score is 3, ENMT - No sinus congestion/drainage. No mouth sores. No sore throat. He has some difficulty swallowing, Hematologic/Lymphatic - No abnormal bruising or bleeding, Respiratory - He has shortness of breath. He very seldom has cough. No pleuritic pain or hemoptysis, Cardiovascular - No angina pain. No palpitations, Gastrointestinal - He has nausea/vomiting and he has some acid reflux, particularly when he is lying down. He is passing just small amounts of stool. No blood in the stool or black stools, Genitourinary (M) - His urine output is not very good. No dysuria or hematuria. No urgency or incontinence, Musculoskeletal - His bones feel weak, but he doesn't have much pain, Integumentary - No skin complications, Neurologic - No headache. He is lightheaded when he stands up. No numbness/paresthesias or other focal neurologic symptoms, Psychiatric - He has depression. He has difficulty sleeping. Vital Signs: Performed on Sep 22, 2019 09:57 Height - 76.00 in Weight - lbs BSA - 0.00 sq.m BMI - 0.00 Temperature - 97.3 F (LOW) Pulse - 104 /min (HIGH) Respiration - 24 /min BP - 105/72 mm(hg) O2 Sat - 95 % (LOW) Pain - 6 Physical Examination: Constitutional - He appears very weak generally, Eyes - Sclerae nonicteric. Conjunctivae clear, ENMT - No lesions noted in the oral cavity, Hematologic/Lymphatic - No cervical, clavicular, or axillary adenopathy, Respiratory - Lungs are clear with good air movement bilaterally, Cardiovascular - Heart rhythm is regular. There is no murmur, gallop, or rub noted, Abdomen - Mildly distended and tympanic. Liver and spleen are not enlarged. There is no abdominal mass or ascites noted. He has tinkling bowel sounds. There is no inguinal adenopathy, Extremities - There is mild lower extremity edema, Neurologic - No focal neurologic deficits noted. Lab/Imaging: Test performed on Sep 22, 2019 10:50 LDH (Total) 298 U/L Sodium 128 mmol/L Potassium 3.9 mmol/L Chloride 90 mmol/L CO2 19 mmol/L Anion Gap 22.9 BUN 12 mg/dL Creatinine 1.0 mg/dL Cr Clearance (Est) 67.9000 mL/min Glucose 86 mg/dL Calcium 6.8 mg/dL Protein, Total 5.5 g/dL Albumin 3.2 g/dL Globulin 2.3 g/dL Bilirubin, Total 0.4 mg/dL ALT (SGPT) 16 U/L AST (SGOT) 19 U/L Alkaline Phosphatase 67 IU/L WBC 3.4 10 3/uL RBC 3.63 10 6/uL HGB 10.2 g/dL HCT 31.3 % MCV 86.2 fL MCH 28.1 pg MCHC 32.6 g/dL RDW 15.9 % Platelet Count 170 10 3/cmm MPV 9.3 fL Neutrophils 2.7 10 3/uL Lymphocytes 0.2 10 3/uL Monocytes 0.5 10 3/uL Eosinophils 0.0 10 3/uL Basophils 0.0 10 3/uL Neutrophil % 81.2 % Lymphocyte % 4.8 % Monocyte % 13.4 % Eosinophil % 0.0 % Basophils % 0.0 % His repeat CT abdomen/pelvis today shows interval development of diffuse mesenteric edema and body wall anasarca with a small amount of perihepatic and perisplenic ascites. The findings were suggestive of superimposed peritoneal carcinomatosis within the abdomen. Diffuse abnormal thickening of the small bowel with some mucosal enhancement was similar in appearance to the prior examination, likely reflecting enteritis. There was no evidence of high-grade obstruction. The necrotic right renal neoplasm also appeared unchanged as did the diffuse pulmonary metastatic disease in the lower lobes. Multiple bony metastatic lesions also appeared stable. Impression: 1. Patient with clear-cell carcinoma of the right kidney, stage IV (T2b, NX, M1). 2. He had MRI evidence of metastatic bone involvement with pathologic compression fracture of the L3 vertebral body and metastatic involvement at multiple sites in the thoracic spine. 3. He had poor performance status. His other medical illnesses include: 4. Degenerative arthritis/degenerative disease of the spine. 5. History of seizure disorder. 6. History of melanoma excision from the left postauricular area and excision of basal cell carcinoma from the right antecubital space. He had severe pain associated with the metastatic bone involvement, and initially he was referred for palliative radiation. He completed treatment to the thoracic spine on 04/26/2019, total dose 3000 cGy, and to the lumbar spine on 04/28/2019, total dose 4000 cGy. During the radiation he developed fairly intractable nausea/vomiting, and he continued to have very marginal performance status. He did appear, though, to have a very good clinical response the radiation. During subsequent follow-up he had gradual improvement in his GI symptoms. On 05/16/2019 he began treatment with pembrolizumab in combination with axitinib. Initally he had been tolerating the treatment well, though he continued to have limited activity. His performance status, though, was gradually improving. Repeat CT abdomen/pelvis on 06/07/2019 showed evidence of therapeutic response of the right renal neoplasm, multiple pulmonary metastatic nodules, and right adrenal nodule. There was, however, progressive lytic metastatic disease involving the sacrum and pelvis. He was then given additional palliative radiation to the pelvis, completed on 06/28/2019 to a total dose of 3000 cGy. He proceeded with cycle 3 of pembrolizumab on 07/05/2019, and he then continued treatment at 3-week intervals. He received cycle 5 on 08/16/2019. At that point the axitinib was put on hold due to persistent neutropenia. On 09/04/2019 he was admitted to the hospital with intractable nausea/vomiting and diarrhea. His CT scan of the abdomen/pelvis showed evidence of diffuse small bowel wall thickening, consistent with treatment related inflammatory enteritis. There was stable appearance to the renal mass and the bony metastatic disease, but there did appear to be progression of his pulmonary metastases. Initially he did appear to be showing some improvement on steroid therapy, but it was very limited benefit and just short term. During subsequent follow-up his symptoms have worsened significantly. The current CT findings and clinical course are more consitent with peritoneal metastatic disease. Plan: He will continue with symptomatic/supportive care. Given the CT findings and lack of improvement with steroid and symptomatic measures, his overall prognosis appears to be very poor. He is given IV fluids and IV antiemetics in the office today, and he is given the option to return for IV fluids again on Wednesday. In the meantime, he is agreeable to go back on prednisone. It will be initiated at 20 mg twice daily for 3 days and then decreased to 10 mg twice daily. He has ondansetron or lorazepam available to use as needed. If those are not effective in managing the nausea, I may have him try Zyprexa. Signed By: Inderjit Valentine M.D. <<Signature on File>>
[2019-09-25] MEDS: sodium chloride 0.9% 1,000 ML 999 ML IV (11:45)
== END 2019-09-29 23:59 | disposition home or self-care (01) ==
LOC: ONCMED 11:48
PROVIDERS: Family Provider Family Medicine; PCP Family Medicine; Visit Provider Internal Medicine Medical Oncology
DX: Z51.5 Encounter for palliative care (principal); C79.31 Secondary malignant neoplasm of brain; C64.1 Malignant neoplasm of right kidney, except renal pelvis; C78.02 Secondary malignant neoplasm of left lung; C78.01 Secondary malignant neoplasm of right lung; C78.6 Secondary malignant neoplasm of retroperitoneum and peritoneum; C79.71 Secondary malignant neoplasm of right adrenal gland; E86.0 Dehydration; R11.2 Nausea with vomiting, unspecified; M19.90 Unspecified osteoarthritis, unspecified site; G40.909 Epilepsy, unspecified, not intractable, without status epilepticus; F32.9 Major depressive disorder, single episode, unspecified; Z79.899 Other long term (current) drug therapy; Z98.1 Arthrodesis status; Z92.3 Personal history of irradiation; Z85.820 Personal history of malignant melanoma of skin
CPT/HCPCS: 74177; 80053; 83615; 85025; 96361; 96365; 96367; 99214; J1100; J2405; J3490; J7030; Q9967